=== PATIENT | male | born 1955 | race African-American/Black ===

== ENCOUNTER 2018-12-10 13:59 | Inpatient (IN) | payer OTHER ==
[2018-12-10 14:47] VITALS: BMI 25.0
--- NOTE | 2018-12-10 15:21 | HP ---
CIWA Score Nausea/Vomitin Muscle Tremors: 2 Anxiety: 2 Agitation: 2 Paroxysmal Sweats: 1-Minimal Palms Moist Orientation: 0-Oriented Tacttile Disturbances: 1-Very Mild Itch/Numbness Auditory Disturbances: 1-Very Mild Visual Disturbances: 0-None Headache: 2-Mild CIWA-Ar Total Score: 13 - Admission Criteria OASAS Guidelines: Admission for Medically Managed Detox: Requires at least one of the followin. CIWA greater than 12 2. Seizures within the past 24 hours 3. Delirium tremens within the past 24 hours 4. Hallucinations within the past 24 hours 5. Acute intervention needed for co occurring medical disorder 6. Acute intervention needed for co occurring psychiatric disorder 7. Severe withdrawal that cannot be handled at a lower level of care (continued vomiting, continued diarrhea, abnormal vital signs) requiring intravenous medication and/or fluids 8. Patient presents the following: CIWA greater than 12 Admission Criteria Met: Admission criteria met Admission ROS BHS - HPI Chief Complaint: i need help to stop drinking alcohol,cocaine Allergies/Adverse Reactions: Allergies Allergy/AdvReac Type Severity Reaction Status Date / Time No Known Allergies Allergy Verified 09/19/16 10:56 History of Present Illness: this 63 years old male with alcohol and cocaine dependence,seeking detox, withdrawal symptom,last detox teresa in 11/10 hepatitis c type 2 dm, syncope longest period of sobriety 6 months multiple admissions but keep relapsing Exam Limitations: No Limitations - Ebola screening Have you been sick,other than usual withdrawal symptoms: No - Review of Systems Constitutional: Loss of Appetite, Malaise, Night Sweats, Changes in sleep, Weakness EENT: reports: Nose Congestion Respiratory: reports: No Symptoms reported Cardiac: reports: Irregular Heart Rate GI: reports: Nausea, Poor Appetite, Abdominal cramping : reports: No Symptoms Reported Musculoskeletal: reports: Back Pain, Muscle Pain Integumentary: reports: Dryness Neuro: reports: Headache, Tremors Endocrine: reports: No Symptoms Reported Hematology: reports: No Symptoms Reported Psychiatric: reports: No Sypmtoms Reported, Judgement Intact, Mood/Affect Appropiate, Orientated x3 Patient History - Patient Medical History Hx Anemia: No Hx Asthma: No Hx Chronic Obstructive Pulmonary Disease (COPD): No Hx Cancer: No Hx Cardiac Disorders: No Hx Congestive Heart Failure: No Hx Hypertension: Yes (non compliance) Hx Hypercholesterolemia: Yes (non compliance) Hx Pacemaker: No HX Cerebrovascular Accident: No Hx Seizures: No Hx Dementia: No Hx Diabetes: Yes (type 2 dm,metformin 500 mgs bid non compliance) Hx Gastrointestinal Disorders: No Hx Liver Disease: No Hx Genitourinary Disorders: No Hx Sexually Transmitted Disorders: No Hx Renal Disease (ESRD): No Hx Thyroid Disease: No Hx Human Immunodeficiency Virus (HIV): No ( Last Tested: 2014: NEGATIVE.) Hx Hepatitis C: Yes (Started Treatment in past, did not complete.) Hx Depression: Yes Hx Suicide Attempt: No (PATIENT DENIES CURRENT SUICIDAL / HOMICIDAL IDEATION.) Hx Bipolar Disorder: No Hx Schizophrenia: No Other Medical History: no suicidal,no homicidal - Patient Surgical History Past Surgical History: Yes Hx Neurologic Surgery: No Hx Cataract Extraction: No Hx Cardiac Surgery: No Hx Lung Surgery: No Hx Breast Surgery: No Hx Breast Biopsy: No Hx Abdominal Surgery: No Hx Appendectomy: No Hx Cholecystectomy: No Hx Genitourinary Surgery: No Hx Section: No Hx Orthopedic Surgery: Yes (fx, right ankle in 2004) Anesthesia Reaction: No - PPD History Previous Implant?: Yes Documented Results: Positive w/o proof Implanted On Prior R Admission?: No PPD to be Administered?: No - Smoking Cessation Smoking history: Former smoker Have you smoked in the past 12 months: Yes Aproximately how many cigarettes per day: 10 Cigars Per Day: 0 Hx Chewing Tobacco Use: No Initiated information on smoking cessation: Yes 'Breaking Loose' booklet given: 12/10/18 - Substance & Tx. History Hx Alcohol Use: Yes Hx Substance Use: Yes Substance Use Type: Alcohol, Cocaine Hx Substance Use Treatment: Yes (teresa 11/10) - Substances Abused Alcohol Route: Oral Frequency: Daily Amount used: 2 pints of rum and vodka Age of first use: 8 Date of Last Use: 12/09/18 Cocaine Route: Smoking Frequency: Daily Amount used: 80$ Age of first use: 30 Date of Last Use: 12/09/18 Family Disease History - Family Disease History Family Disease History: Diabetes: Grandparent, Heart Disease: Grandparent, Brother Admission Physical Exam BHS - Vital Signs Vital Signs: Vital Signs - 24 hr 12/10/18 14:44 Temperature 98.2 F Pulse Rate 75 Respiratory 20 Rate Blood Pressure 158/89 - Physical General Appearance: Yes: Moderate Distress, Tremorous, Irritable, Sweating, Anxious HEENTM: Yes: Normal ENT Inspection, Normocephalic, SADIA, Pharynx Normal Respiratory: Yes: Lungs Clear, Normal Breath Sounds, No Respiratory Distress ( coughing with yellowish mucous) Neck: Yes: Within Normal Limits, Supple, Trachea in good position Breast: Yes: Within Normal Limits Cardiology: Yes: Regular Rhythm, Regular Rate, S1, S2, Edema Abdominal: Yes: Normal Bowel Sounds, Non Tender, Soft Genitourinary: Yes: Within Normal Limits Back: Yes: Muscle Spasm Musculoskeletal: Yes: Back pain, Muscle Pain Extremities: Yes: Within Normal Limits, Normal Range of Motion, Tremors Neurological: Yes: applications programmer II-XII NML intact, Fully Oriented, Alert, Motor Strength 5/5 Integumentary: Yes: Dry Lymphatic: Yes: Within Normal Limits - Diagnostic (1) Alcohol dependence with uncomplicated withdrawal Current Visit: No Status: Chronic (2) CAD (coronary artery disease) Current Visit: No Status: Chronic Qualifiers: Coronary Disease-Associated Artery/Lesion type: unspecified vessel or lesion type [place] vs. transplanted heart: [place] heart Associated angina: with unstable angina Qualified Code(s): I25.110 - Atherosclerotic heart disease of [place] coronary artery with unstable angina pectoris (3) Hypertension Current Visit: No Status: Chronic Qualifiers: Hypertension type: essential hypertension Qualified Code(s): I10 - Essential (primary) hypertension (4) Hypercholesteremia Current Visit: Yes Status: Acute (5) Cocaine dependence Current Visit: Yes Status: Acute Cleared for Admission [facility] - Detox or Rehab [facility] Level of Care: Medically Managed Detox Regimen/Protocol: Librium [facility] Breath Alcohol Content Breath Alcohol Content: 0 Urine Drug Screen - Results Drug Screen Negative: No Urine Drug Screen Results: [facility]-Cocaine, BZO-Benzodiazepines Inpatient Rehab Admission - Rehab Decision to Admit Inpatient rehab admission?: No
[2018-12-10] MEDS ORDERED: hydrOXYzine PAMOATE 50 MG CAPSULE (FP) PO PRN (15:54)
[2018-12-10] MEDS ORDERED: ACETAMINOPHEN 325 MG TABLET (FP) PO PRN (15:54)
[2018-12-10] MEDS ORDERED: MAG HYDROX/AL HYDROX/SIMETH 30 ML UNIT-DOSE CUP PO PRN (15:54)
[2018-12-10] MEDS ORDERED: MAGNESIUM HYDROX 2400MG/30ML ORAL SUSPENSION 30 ML CUP PO PRN (15:54)
[2018-12-10] MEDS ORDERED: LOPERAMIDE HCL 2 MG CAPSULE PO PRN (15:54)
[2018-12-10] MEDS ORDERED: MENTHOL/PHENOL 1 EACH UD MM PRN (15:54)
[2018-12-10] MEDS ORDERED: IBUPROFEN 400 MG TABLET (FP) PO PRN (15:54)
[2018-12-10] MEDS ORDERED: chlordiazePOXIDE HCL 25 MG CAPSULE PO PRN (15:54)
[2018-12-10] MEDS ORDERED: P-EPHED 60MG/TRIPROLIDI 2.5MG TABLET PO PRN (15:54)
[2018-12-10] MEDS ORDERED: MAGNESIUM CITRATE 300 ML BOTTLE PO PRN (15:54)
[2018-12-10] MEDS ORDERED: guaiFENesin/D-METHORPHAN HB 10 ML UNIT-DOSE CUPS PO PRN (15:54)
[2018-12-10] MEDS ORDERED: NITROGLYCERIN SUBLINGUAL 1/150 0.4 MG TAB SL PRN (15:59)
[2018-12-10] MEDS: chlordiazePOXIDE HCL 25 MG CAPSULE PO SCH ×2 (19:42→22:41)
[2018-12-10] MEDS: metFORMIN HCL 500 MG TABLET (FP) PO SCH (19:42)
[2018-12-10] MEDS ORDERED: MELATONIN 5 MG TABLETS PO PRN (22:00)
[2018-12-10] MEDS: INSULIN (LEVEMIR) 100 UNITS/ML UNITS SQ SCH (22:40)
[2018-12-10] MEDS: THIAMINE HCL 100 MG TABLET (FP) PO SCH (22:41)
[2018-12-11] MEDS: chlordiazePOXIDE HCL 25 MG CAPSULE PO SCH ×4 (05:19→22:34)
[2018-12-11] MEDS: metFORMIN HCL 500 MG TABLET (FP) PO SCH ×2 (07:25→16:50)
[2018-12-11] MEDS: PRENATAL VITAMINS W/ FOLIC ACID TABLET (FP) PO SCH (09:05)
[2018-12-11] MEDS: CLOPIDOGREL BISULFATE 75 MG TABLET (FP) PO SCH (09:05)
--- NOTE | 2018-12-11 10:45 | PN ---
S CIWA - CIWA Score Nausea/Vomitin-Mild Nausea/No Vomiting Muscle Tremors: 4-Moderate,w/Arms Extend Anxiety: 3 Agitation: 3 Paroxysmal Sweats: 1-Minimal Palms Moist Orientation: 1-Uncertain about Date Tacttile Disturbances: 0-None Auditory Disturbances: 0-None Visual Disturbances: 0-None Headache: 0-None Present CIWA-Ar Total Score: 13 BHS Progress Note (SOAP) Subjective: reported no taking antihypertensant x 1 + weeks, tremor sweating anxiety restlessness Objective: 12/11/18 10:44 Vital Signs Temperature 98.1 F 12/11/18 09:12 Pulse Rate 72 12/11/18 09:12 Respiratory Rate 18 12/11/18 09:12 Blood Pressure 183/91 H 12/11/18 09:12 O2 Sat by Pulse Oximetry (%) Laboratory Last Values POC Glucometer 128 UNITS (80-120) 12/11/18 05:19 begin home med antihypertensant lab pending Assessment: 12/11/18 10:45 alcohol withdrawal sx 12/11/18 10:45 hypertension diabetes Plan: continue detox discuss medication adherence
[2018-12-11] MEDS ORDERED: cloNIDine HCL 0.1 MG TABLET PO PRN (10:46)
[2018-12-11 11:28] LABS: ALBUMIN 2.7 g/dl (3.4-5.0); ALK PHOS 107 U/L (45-117); ANION GAP 5 MMOL/L (8-16); BILIRUBIN,TOTAL 0.3 mg/dL (0.2-1); BLOOD UREA NITROGEN 19 mg/dL (7-18); CALCIUM 9.4 mg/dL (8.5-10.1); CHLORIDE 106 mmol/L (98-107); CO2 30 mmol/L (21-32); GLUCOSE,RANDOM 147 mg/dL (74-106); POTASSIUM 3.9 mmol/L (3.5-5.1); SGOT/AST 20 U/L (15-37); SGPT/ALT 27 U/L (13-61); SODIUM 141 mmol/L (136-145); TOT PROT 5.8 g/dl (6.4-8.2)
[2018-12-11 11:48] LABS: HEMATOCRIT 37.1 % (35.4-49); HEMOGLOBIN 12.9 GM/dL (11.7-16.9); MCH 32.7 pg (25.7-33.7); MCHC 34.6 g/dl (32.0-35.9); MEAN CELL VOLUME 94.5 fl (80-96); MEAN PLT VOLUME 8.8 fl (7.5-11.1); PLATELET COUNT 276 K/MM3 (134-434); RBC 3.93 M/mm3 (4.00-5.60); RDW 13.6 % (11.9-15.9); WHITE BLOOD COUNT 3.9 K/mm3 (4.0-10.0)
[2018-12-11] MEDS: INSULIN (LEVEMIR) 100 UNITS/ML UNITS SQ SCH (22:33)
[2018-12-11] MEDS: THIAMINE HCL 100 MG TABLET (FP) PO SCH (22:57)
[2018-12-12] MEDS: metFORMIN HCL 500 MG TABLET (FP) PO SCH ×2 (06:41→17:37)
[2018-12-12] MEDS: chlordiazePOXIDE HCL 25 MG CAPSULE PO SCH ×2 (06:43→10:12)
[2018-12-12] MEDS: PRENATAL VITAMINS W/ FOLIC ACID TABLET (FP) PO SCH (10:12)
[2018-12-12] MEDS: CLOPIDOGREL BISULFATE 75 MG TABLET (FP) PO SCH (10:12)
--- NOTE | 2018-12-12 15:05 | PN ---
S CIWA - CIWA Score Nausea/Vomitin-Mild Nausea/No Vomiting Muscle Tremors: 1-None Visible, but [place] Anxiety: 1-Mildly Anxious Agitation: 1-Slight > Activity Paroxysmal Sweats: No Perspiration Orientation: 0-Oriented Tacttile Disturbances: 0-None Auditory Disturbances: 0-None Visual Disturbances: 0-None Headache: 0-None Present CIWA-Ar Total Score: 4 BHS Progress Note (SOAP) Subjective: pt states doing fine with alcohol detox protocol, wants to go to rehab after completing detox protocol O Vital Signs - 24 hr 12/11/18 12/11/18 12/12/18 17:49 22:07 00:30 Temperature 99 F 97.6 F Pulse Rate 74 70 Respiratory 18 18 18 Rate Blood Pressure 156/82 178/83 H 12/12/18 12/12/18 12/12/18 03:30 06:26 06:30 Temperature 97.4 F L Pulse Rate 60 Respiratory 18 18 18 Rate Blood Pressure 153/83 12/12/18 12/12/18 09:48 13:41 Temperature 98.1 F 98.6 F Pulse Rate 64 78 Respiratory 18 18 Rate Blood Pressure 136/70 140/70 Laboratory Tests 12/10/18 12/10/18 12/11/18 19:01 21:17 05:19 WBC RBC Hgb Hct MCV MCH MCHC RDW Plt Count MPV Sodium Potassium Chloride Carbon Dioxide Anion Gap BUN Creatinine Creat Clearance w eGFR POC Glucometer 240 262 128 Random Glucose Calcium Total Bilirubin AST ALT Alkaline Phosphatase Total Protein Albumin RPR Titer 12/11/18 12/11/18 12/11/18 08:00 08:00 08:00 WBC 3.9 L RBC 3.93 L Hgb 12.9 Hct 37.1 MCV 94.5 MCH 32.7 MCHC 34.6 RDW 13.6 Plt Count 276 MPV 8.8 Sodium 141 Potassium 3.9 Chloride 106 Carbon Dioxide 30 Anion Gap 5 L BUN 19 H Creatinine 1.0 Creat Clearance w eGFR > 60 POC Glucometer Random Glucose 147 H Calcium 9.4 Total Bilirubin 0.3 AST 20 ALT 27 Alkaline Phosphatase 107 Total Protein 5.8 L Albumin 2.7 L RPR Titer Nonreactive 12/11/18 12/11/18 12/11/18 11:11 16:29 21:17 WBC RBC Hgb Hct MCV MCH MCHC RDW Plt Count MPV Sodium Potassium Chloride Carbon Dioxide Anion Gap BUN Creatinine Creat Clearance w eGFR POC Glucometer 119 197 258 Random Glucose Calcium Total Bilirubin AST ALT Alkaline Phosphatase Total Protein Albumin RPR Titer 12/12/18 06:08 WBC RBC Hgb Hct MCV MCH MCHC RDW Plt Count MPV Sodium Potassium Chloride Carbon Dioxide Anion Gap BUN Creatinine Creat Clearance w eGFR POC Glucometer 122 Random Glucose Calcium Total Bilirubin AST ALT Alkaline Phosphatase Total Protein Albumin RPR Titer a/p: continue alcohol detox protocol elevated bgm- monitor-
[2018-12-12] MEDS: chlordiazePOXIDE 5 MG CAPSULE PO SCH (17:37)
[2018-12-12] MEDS: INSULIN (LEVEMIR) 100 UNITS/ML UNITS SQ SCH (22:22)
[2018-12-12] MEDS: THIAMINE HCL 100 MG TABLET (FP) PO SCH (22:22)
[2018-12-13] MEDS: chlordiazePOXIDE 5 MG CAPSULE PO SCH ×3 (00:20→10:35)
[2018-12-13] MEDS: metFORMIN HCL 500 MG TABLET (FP) PO SCH ×2 (07:26→17:59)
[2018-12-13] MEDS: PRENATAL VITAMINS W/ FOLIC ACID TABLET (FP) PO SCH (10:34)
[2018-12-13] MEDS: CLOPIDOGREL BISULFATE 75 MG TABLET (FP) PO SCH (10:35)
--- NOTE | 2018-12-13 10:48 | PN ---
S CIWA - CIWA Score Nausea/Vomitin-No Nausea/No Vomiting Muscle Tremors: 1-None Visible, but [place] Anxiety: 1-Mildly Anxious Agitation: 0-Normal Activity Paroxysmal Sweats: No Perspiration Orientation: 0-Oriented Tacttile Disturbances: 0-None Auditory Disturbances: 0-None Visual Disturbances: 0-None Headache: 0-None Present CIWA-Ar Total Score: 2 BHS Progress Note (SOAP) Subjective: feeling better less tremor mild sweating sleep better at night Objective: 12/13/18 10:52 Vital Signs Temperature 98.2 F 12/13/18 09:26 Pulse Rate 62 12/13/18 09:26 Respiratory Rate 18 12/13/18 09:26 Blood Pressure 154/74 12/13/18 09:26 O2 Sat by Pulse Oximetry (%) Laboratory Last Values WBC 3.9 K/mm3 (4.0-10.0) L 12/11/18 08:00 RBC 3.93 M/mm3 (4.00-5.60) L 12/11/18 08:00 Hgb 12.9 GM/dL (11.7-16.9) 12/11/18 08:00 Hct 37.1 % (35.4-49) 12/11/18 08:00 MCV 94.5 fl (80-96) 12/11/18 08:00 MCH 32.7 pg (25.7-33.7) 12/11/18 08:00 MCHC 34.6 g/dl (32.0-35.9) 12/11/18 08:00 RDW 13.6 % (11.9-15.9) 12/11/18 08:00 Plt Count 276 K/MM3 (134-434) 12/11/18 08:00 MPV 8.8 fl (7.5-11.1) 12/11/18 08:00 Sodium 141 mmol/L (136-145) 12/11/18 08:00 Potassium 3.9 mmol/L (3.5-5.1) 12/11/18 08:00 Chloride 106 mmol/L (98-107) 12/11/18 08:00 Carbon Dioxide 30 mmol/L (21-32) 12/11/18 08:00 Anion Gap 5 MMOL/L (8-16) L 12/11/18 08:00 BUN 19 mg/dL (7-18) H 12/11/18 08:00 Creatinine 1.0 mg/dL (0.55-1.3) 12/11/18 08:00 Creat Clearance w eGFR > 60 (>60) 12/11/18 08:00 POC Glucometer 217 UNITS (80-120) 12/13/18 07:15 Random Glucose 147 mg/dL (74-106) H 12/11/18 08:00 Calcium 9.4 mg/dL (8.5-10.1) 12/11/18 08:00 Total Bilirubin 0.3 mg/dL (0.2-1) 12/11/18 08:00 AST 20 U/L (15-37) 12/11/18 08:00 ALT 27 U/L (13-61) 12/11/18 08:00 Alkaline Phosphatase 107 U/L (45-117) 12/11/18 08:00 Total Protein 5.8 g/dl (6.4-8.2) L 12/11/18 08:00 Albumin 2.7 g/dl (3.4-5.0) L 12/11/18 08:00 RPR Titer Nonreactive (NONREACTIVE) 12/11/18 08:00 lab noted 12/13/18 10:53 patient admit non adherence with antihypertensant x "a while" nifedipin along with clonidin prn to manage systolic below 140 Assessment: 12/13/18 10:54 withdrawal sx Plan: continue detox
[2018-12-13] MEDS: chlordiazePOXIDE HCL 10 MG CAPSULE PO SCH ×2 (17:59→23:09)
[2018-12-13] MEDS: INSULIN (LEVEMIR) 100 UNITS/ML UNITS SQ SCH (23:10)
[2018-12-13] MEDS: THIAMINE HCL 100 MG TABLET (FP) PO SCH (23:10)
[2018-12-14 06:11] VITALS: BP 143/76; PULSE 60; TEMP 97.2
[2018-12-14] MEDS: metFORMIN HCL 500 MG TABLET (FP) PO SCH (07:04)
[2018-12-14] MEDS: chlordiazePOXIDE HCL 10 MG CAPSULE PO SCH (07:05)
--- NOTE | 2018-12-14 09:11 | DS ---
[facility] Detox Discharge Summary Admission Date: 12/10/18 Discharge Date: 12/14/18 - History Present History: Alcohol Dependence, Cocaine Dependence - Physical Exam Results Vital Signs: Vital Signs Temperature 97.2 F L 12/14/18 06:11 Pulse Rate 60 12/14/18 06:11 Respiratory Rate 18 12/14/18 06:11 Blood Pressure 143/76 12/14/18 06:11 O2 Sat by Pulse Oximetry (%) - Treatment Hospital Course: Detox Protocol Followed, Detoxed Safely, Responded well, Discharged Condition Good - Medication Discharge Medications: Ambulatory Orders Aspirin [ASA -] 81 mg PO DAILY #30 tab.chew 09/20/16 Diltiazem Cd [Cardizem Cd -] 120 mg PO DAILY #30 cap.cd.24h 09/22/16 Insulin Glargine,Hum.rec.anlog [Lantus Solostar PEN -] 30 units SQ HS #1 ins 11/07 Clopidogrel Bisulfate [Plavix -] 75 mg PO DAILY #14 tablet 12/13/18 Diltiazem Cd [Cardizem Cd -] 120 mg PO DAILY #14 cap.cd.24h 12/13/18 Nitroglycerin Sublingual [Nitrostat -] 0.4 mg SL Q5M PRN #7 tab 12/13/18 metFORMIN HCL [Glucophage -] 500 mg PO BID #30 tablet 12/13/18 - Diagnosis (1) Cocaine dependence Current Visit: Yes Status: Chronic Qualifiers: Substance use status: uncomplicated Qualified Code(s): F14.20 - Cocaine dependence, uncomplicated (2) Hypercholesteremia Current Visit: Yes Status: Chronic (3) Alcohol dependence with uncomplicated withdrawal Current Visit: No Status: Chronic (4) CAD (coronary artery disease) Current Visit: No Status: Chronic Qualifiers: Coronary Disease-Associated Artery/Lesion type: unspecified vessel or lesion type [place] vs. transplanted heart: [place] heart Associated angina: with unstable angina Qualified Code(s): I25.110 - Atherosclerotic heart disease of [place] coronary artery with unstable angina pectoris (5) Hypertension Current Visit: Yes Status: Chronic Qualifiers: Hypertension type: essential hypertension Qualified Code(s): I10 - Essential (primary) hypertension - AMA Did Patient Leave Against Medical Advice: No
== END 2018-12-14 09:14 | disposition home or self-care (01) | DRG 774 ==
LOC: YASAS 13:59 → Y3N 18:02
PROVIDERS: ADMIT Surgery; ATTEND Surgery
PROC: HZ2ZZZZ Detoxification Services for Substance Abuse Treatment (ICD-10-PCS; principal; 2018-12-10)
DX: F10.230 Alcohol dependence with withdrawal, uncomplicated (principal); F14.20 Cocaine dependence, uncomplicated; I25.10 Atherosclerotic heart disease of native coronary artery without angina pectoris; I10 Essential (primary) hypertension; E78.00 Pure hypercholesterolemia, unspecified; E11.9 Type 2 diabetes mellitus without complications; Z79.84 Long term (current) use of oral hypoglycemic drugs; Z91.14 Patient's other noncompliance with medication regimen
CPT/HCPCS: 36415; 80053; 82962; 85027; 86593

== ENCOUNTER 2020-07-20 10:00 | Inpatient (IN) | payer OTHER ==
--- NOTE | 2020-07-20 10:06 | BHS.RME ---
Substance Use & Tx History - Substance Use History Alcohol Substance amount: 3 pints vodka Frequency of use: Daily Substance route: Oral Date of Last Use: 07/19/20 (started at age 12) Cocaine-Crack Substance amount: $150-200 Frequency of use: Daily Substance route: Smoking Date of Last Use: 07/19/20 (started age 37) Marijuana/Hashish Substance amount: $30 Frequency of use: Less than 3 times per week Substance route: Smoking Date of Last Use: 07/18/20 (staerted age 13) Physical/Psych/Mental Status - Behavior General Behavior: Increased activity (restlessness, agitation) Eye Contact: Normal - Cooperativeness Cooperativeness: Cooperative - Thinking Thought Processes: Tight, Logical, Goal Directed - Physical Health Problems Is patient presently having any pain?: No Does patient presently have any injuries (include location): No Does patient currently have a fever: No Is patient : No CIWA Nausea/Vomitin-Int. Nausea w/Dry Heave Muscle Tremors: 3 Anxiety: 3 Agitation: 3 Paroxysmal Sweats: 4-Forehead w/Sweat Beads Orientation: 1-Uncertain about Date Tacttile Disturbances: 0-None Auditory Disturbances: 0-None Visual Disturbances: 1-Very Mild Sensitivity Headache: 1-Very Mild CIWA-Ar Total Score: 20
--- NOTE | 2020-07-20 11:16 | HP ---
CIWA Score Nausea/Vomitin-Int. Nausea w/Dry Heave Muscle Tremors: 3 Anxiety: 3 Agitation: 3 Paroxysmal Sweats: 4-Forehead w/Sweat Beads Orientation: 1-Uncertain about Date Tacttile Disturbances: 0-None Auditory Disturbances: 0-None Visual Disturbances: 1-Very Mild Sensitivity Headache: 1-Very Mild CIWA-Ar Total Score: 20 - Admission Criteria OASAS Guidelines: Admission for Medically Managed Detox: Requires at least one of the followin. CIWA greater than 12 2. Seizures within the past 24 hours 3. Delirium tremens within the past 24 hours 4. Hallucinations within the past 24 hours 5. Acute intervention needed for co occurring medical disorder 6. Acute intervention needed for co occurring psychiatric disorder 7. Severe withdrawal that cannot be handled at a lower level of care (continued vomiting, continued diarrhea, abnormal vital signs) requiring intravenous medication and/or fluids 8. Admitting History and Physical - Admission Chief Complaint: Mr. Fisher is a 64 yo man who presents to [facility] stating he is here "to clean my life up, get my act together". He is requesting detox admission. History of Present Illness: Mr. Fisher is a 64 yo man who presents to [facility] stating he is here "to clean my life up, get my act together". He is requesting detox admission. He was last here for admission between Dec 10 and 2018. He was screened but not admitted in March of this year. PMH: HTN, HLD, DM, HCV treated but not completed PSH; irght ankel fracture 2004 Psych: depression on no meds SOC: homeless on the streets Legal: none - Substance Use History Alcohol Substance amount: 3 pints vodka Frequency of use: Daily Substance route: Oral Date of Last Use: 07/19/20 (started at age 12) Cocaine-Crack Substance amount: $150-200 Frequency of use: Daily Substance route: Smoking Date of Last Use: 07/19/20 (started age 37) Marijuana/Hashish Substance amount: $30 Frequency of use: Less than 3 times per week Substance route: Smoking Date of Last Use: 07/18/20 (staerted age 13) History Source: Patient Limitations to Obtaining History: No Limitations - Past Medical History Cardiovascular: Yes: CAD, [place] - Smoking History Smoking history: Former smoker Have you smoked in the past 12 months: Yes Aproximately how many cigarettes per day: 10 - Alcohol/Substance Use Hx Alcohol Use: Yes Admission ROS S - HPI Allergies/Adverse Reactions: Allergies Allergy/AdvReac Type Severity Reaction Status Date / Time No Known Allergies Allergy Verified 12/10/18 18:37 Exam Limitations: No Limitations - Ebola screening Have you traveled outside of the country in the last 21 days: No Have you been sick,other than usual withdrawal symptoms: No Do you have a fever: No - Review of Systems Constitutional: Unintentional Wgt. Loss (lost 10 lbs in the past month) EENT: reports: Blurred Vision (needs reading glasses) Respiratory: reports: No Symptoms reported Cardiac: reports: No Symptoms Reported GI: reports: No Symptoms Reported : reports: No Symptoms Reported Musculoskeletal: reports: Back Pain (chronic, mild) Integumentary: reports: No Symptoms Reported Neuro: reports: No Symptoms reported Endocrine: reports: Other (post prandial glucose 180 when checked at home) Hematology: reports: No Symptoms Reported Psychiatric: reports: Depressed (no SI) Patient History - Patient Medical History Hx Anemia: No Hx Asthma: No Hx Chronic Obstructive Pulmonary Disease (COPD): No Hx Cancer: No Hx Cardiac Disorders: No Hx Congestive Heart Failure: No Hx Hypertension: Yes (non compliance) Hx Hypercholesterolemia: Yes (non compliance) Hx Pacemaker: No HX Cerebrovascular Accident: No Hx Seizures: No Hx Dementia: No Hx Diabetes: Yes (type 2 dm,metformin 500 mgs bid non compliance) Hx Gastrointestinal Disorders: No Hx Liver Disease: No Hx Genitourinary Disorders: No Hx Sexually Transmitted Disorders: No Hx Renal Disease (ESRD): No Hx Thyroid Disease: No Hx Human Immunodeficiency Virus (HIV): No ( Last Tested: 2014: NEGATIVE.) Hx Hepatitis C: Yes (Started Treatment in past, did not complete.) Hx Depression: Yes Hx Suicide Attempt: No (PATIENT DENIES CURRENT SUICIDAL / HOMICIDAL IDEATION.) Hx Bipolar Disorder: No Hx Schizophrenia: No - Patient Surgical History Past Surgical History: Yes Hx Neurologic Surgery: No Hx Cataract Extraction: No Hx Cardiac Surgery: No Hx Lung Surgery: No Hx Breast Surgery: No Hx Breast Biopsy: No Hx Abdominal Surgery: No Hx Appendectomy: No Hx Cholecystectomy: No Hx Genitourinary Surgery: No Hx Section: No Hx Orthopedic Surgery: Yes (fx, right ankle in 2004) Anesthesia Reaction: No - Smoking Cessation Smoking history: Former smoker Have you smoked in the past 12 months: Yes Aproximately how many cigarettes per day: 20 Cigars Per Day: 0 Hx Chewing Tobacco Use: No Initiated information on smoking cessation: Yes 'Breaking Loose' booklet given: 07/20/20 Admission Physical Exam [facility] - Physical General Appearance: Yes: No Apparent Distress, Nourished HEENTM: Yes: EOMI, Hearing grossly Normal, Normocephalic, Normal Voice Respiratory: Yes: Lungs Clear, No Respiratory Distress, No Accessory Muscle Use Neck: Yes: Within Normal Limits, Supple Breast: Yes: Breast Exam Deferred Cardiology: Yes: Regular Rhythm, Regular Rate Abdominal: Yes: Normal Bowel Sounds, Non Tender, Soft, Protuberent Genitourinary: Yes: Other (deferred) Back: Yes: Normal Inspection, Other (small scar right lateral thoracic region, pt does not recall how this happened) Musculoskeletal: Yes: Other (slightly wide based, steady) Extremities: Yes: Normal Inspection, Non-Tender Neurological: Yes: Alert, Normal Response Integumentary: Yes: Normal Color, Dry, Warm - Diagnostic (1) Nicotine dependence Current Visit: Yes Status: Acute Qualifiers: Nicotine product type: cigarettes Substance use status: uncomplicated Qualified Code(s): F17.210 - Nicotine dependence, cigarettes, uncomplicated (2) Homeless Current Visit: Yes Status: Acute (3) Insulin dependent diabetes mellitus Current Visit: Yes Status: Chronic Comment: 1. glucose monitoring ACHS 2. fingestick now 3. reconcile meds (4) Hepatitis C Current Visit: No Status: Chronic (5) Alcohol dependence with uncomplicated withdrawal Current Visit: Yes Status: Acute Comment: 1. Admit to detox 2. Librium protocol 3. Routine labs 4. Comfort medication (6) Cocaine dependence Current Visit: Yes Status: Chronic Qualifiers: Substance use status: uncomplicated Qualified Code(s): F14.20 - Cocaine dependence, uncomplicated (7) Hypercholesteremia Current Visit: No Status: Chronic (8) Hypertension Current Visit: Yes Status: Chronic Qualifiers: Hypertension type: essential hypertension Qualified Code(s): I10 - Essential (primary) hypertension Cleared for Admission [facility] - Detox or Rehab [facility] Level of Care: Medically Managed Detox Regimen/Protocol: Librium Breathalyzer - Breathalyzer Breathalyzer: 0.007 Urine Drug Screen - Test Device Lot number: [id number] Expiration date: 01/28/22 - Control Is test valid?: Yes - Results Drug screen NEGATIVE: No Urine drug screen results: [facility]-Cocaine Inpatient Rehab Admission - Rehab Decision to Admit Inpatient rehab admission?: No
[2020-07-20] MEDS ORDERED: IBUPROFEN 400 MG TABLET (FP) PO PRN (11:26)
[2020-07-20] MEDS ORDERED: MENTHOL/PHENOL 1 EACH UD MM PRN (11:26)
[2020-07-20] MEDS ORDERED: METHOCARBAMOL 500 MG TABLET PO PRN (11:26)
[2020-07-20] MEDS ORDERED: BISMUTH SUBSALICYLATE 524 MG/30 ML UD PO PRN (11:26)
[2020-07-20] MEDS ORDERED: ONDANSETRON *ODT* 4 MG TABLET SL PRN (11:26)
[2020-07-20] MEDS ORDERED: MAGNESIUM HYDROX 2400MG/30ML ORAL SUSPENSION 30 ML CUP PO PRN (11:26)
[2020-07-20] MEDS ORDERED: NICOTINE POLACRILEX 2 MG GUM BUC PRN (11:26)
[2020-07-20] MEDS ORDERED: chlordiazePOXIDE HCL 25 MG CAPSULE PO PRN (11:26)
[2020-07-20] MEDS ORDERED: MAG HYDROX/AL HYDROX/SIMETH 30 ML UNIT-DOSE CUP PO PRN (11:26)
[2020-07-20] MEDS ORDERED: MAGNESIUM CITRATE 300 ML BOTTLE PO PRN (11:26)
[2020-07-20] MEDS ORDERED: ACETAMINOPHEN 325 MG TABLET (FP) PO PRN ×2 (11:26)
[2020-07-20] MEDS ORDERED: INSULIN (NOVOLOG) ASPART 100 UNITS/ML 10ML VIAL ONE (11:35)
[2020-07-20] MEDS ORDERED: Insulin (LOG) Aspart 100 UNITS/ML VIAL SQ ONE (11:45)
--- OUTSIDE RECORDS SUMMARY | 2020-07-20 11:57 | XMS ---
:1955 [facility] Providers Name Role Phone PALAO, C MD Unavailable Unavailable PALAO, C MD Unavailable Unavailable PALAO, C MD Unavailable Unavailable PALAO, C MD Unavailable Unavailable PALAO, C MD Unavailable Unavailable PALAO, C MD Unavailable Unavailable PALAO, C MD Unavailable Unavailable PALAO, C MD Unavailable Unavailable PALAO, C MD Unavailable Unavailable PALAO, C MD Unavailable Unavailable PALAO, C MD Unavailable Unavailable PALAO, C MD Unavailable Unavailable PALAO, C MD Unavailable Unavailable PALAO, C MD Unavailable Unavailable Allgaier, ONBOARDING SPECIALIST Unavailable Unavailable Allgaier, ONBOARDING SPECIALIST Unavailable Unavailable Allgaier, ONBOARDING SPECIALIST Unavailable Unavailable Allgaier, ONBOARDING SPECIALIST Unavailable Unavailable Allgaier, ONBOARDING SPECIALIST Unavailable Unavailable Allgaier, ONBOARDING SPECIALIST Unavailable Unavailable Allgaier, ONBOARDING SPECIALIST Unavailable Unavailable Allgaier, ONBOARDING SPECIALIST Unavailable Unavailable Allgaier, ONBOARDING SPECIALIST Unavailable Unavailable Allgaier, ONBOARDING SPECIALIST Unavailable Unavailable Allgaier, ONBOARDING SPECIALIST Unavailable Unavailable Allgaier, ONBOARDING SPECIALIST Unavailable Unavailable Allgaier, ONBOARDING SPECIALIST Unavailable Unavailable Allgaier, ONBOARDING SPECIALIST Unavailable Unavailable Allgaier, ONBOARDING SPECIALIST Unavailable Unavailable Allgaier, ONBOARDING SPECIALIST Unavailable Unavailable Allgaier, ONBOARDING SPECIALIST Unavailable Unavailable Allgaier, ONBOARDING SPECIALIST Unavailable Unavailable BAPANA, V MD Unavailable Unavailable BAPANA, V MD Unavailable Unavailable BAPANA, V MD Unavailable Unavailable BAPANA, V MD Unavailable Unavailable BAPANA, V MD Unavailable Unavailable BAPANA, V MD Unavailable Unavailable BAPANA, V MD Unavailable Unavailable BAPANA, V MD Unavailable Unavailable BAPANA, V MD Unavailable Unavailable BAPANA, V MD Unavailable Unavailable BAPANA, V MD Unavailable Unavailable BAPANA, V MD Unavailable Unavailable BAPANA, V MD Unavailable Unavailable BAPANA, V MD Unavailable Unavailable BAPANA, V MD Unavailable Unavailable Amisano, Amisano Unavailable Unavailable Amisano, Amisano Unavailable Unavailable Re-disclosure Warning The records that you are about to access may contain information from federally- assisted alcohol or drug abuse programs. If such information is present, then the following federally mandated warning applies: This information has been disclosed to you from records protected by federal confidentiality rules (42 CFR part 2). The federal rules prohibit you from making any further disclosure of this information unless further disclosure is expressly permitted by the written consent of the person to whom it pertains or as otherwise permitted by 42 CFR part 2. A general authorization for the release of medical or other information is NOT sufficient for this purpose. The Federal rules restrict any use of the information to criminally investigate or prosecute any alcohol or drug abuse patient.The records that you are about to access may contain highly sensitive health information, the redisclosure of which is protected by Article 27-F of the [facility] Public Health law. If you continue you may haveaccess to information: Regarding HIV / AIDS; Provided by facilities licensed or operated by the [facility] Office of Mental Health; or Provided by the [facility] Office for People With Developmental Disabilities. If such information is present, then the following [facility] mandated warning applies: This information has been disclosed to you from confidential records which are protected by state law. State law prohibits you from making any further disclosure of this information without the specific written consent of the person to whom it pertains, or as otherwise permitted by law. Any unauthorized further disclosure in violation of state law may result in a fine or intermediate sentence or both. A general authorization for the release of medical or other information is NOT sufficient authorization for further disclosure. Allergies and Adverse Reactions Type Description Substance Reaction Status Data Source(s ) Propensity to adverse NKDA NKDA MED [facility] ([facility]) reactions to drug Family History Family Member Family Member Family Member Date of Description Data Source(s) Name Gender Status Status Unknown Male Problem [facility] ([facility]) Encounters Encounter Providers Location Date Indications Data Source(s ) Preadmit Attender: Eleanor 07/25/2019 CHRONIC HEPATITIS C [facility] [place] 11:00:00 AM Center EDT CHRONIC HEPATITIS C OutpatientOffice Visit Attender: Eiv Office 03/15/2018 [facility] Dana Harvey 03:30:00 AM EDT Card iology) ONBOARDING SPECIALIST Emergency Attender: 02/14/2018 [facility] BRYCE WILLSON 01:23:00 PM EDT Gary purcell MD - 02/14/2018 04:20:00 PM EDT Emergency Attender: 02/14/2018 [facility] BRYCE WILLSON 01:23:00 PM EDT Gary purcell MD - 02/14/2018 04:20:00 PM ED[facility] 02:20:45 PM EST Outpatient Attender: 05/01/2013 [facility] RAMSEY CAPONE MD 10:17:00 AM EDT Outpatient Attender: 04/26/2013 [facility] RAMSEY CAPONE MD 01:44:00 PM EDT Outpatient Attender: 03/08/2013 [facility] RAMSEY CAPONE MD 12:19:00 PM EDT Outpatient Attender: 03/06/2013 [facility] RAMSEY CAPONE MD 01:52:00 PM EDT Medications Medication Brand Start Product Dose Route Administrative Pharmacy [facility] Indications Reaction Description Data Name Date Form Instructions Instructions Source(s) Amlodipine Amlodi Tablets ORAL complet Amlodi pine MEDENT 10 MG Oral pine ed Besylate ([facility] Tablet [facility] Amlodipine te ) Besylate atorvastati Atorva Tablets ORAL complet Atorv astatin MED[facility] n 10 MG statin ed Calcium ([facility] Oral Tablet Calciu Cardio logy Atorvastati m ) n Calcium Enalapril Enalap Tablets ORAL complet Enalapr il [facility] Maleate 20 ril ed Maleate ([facility] MG Oral Maleat Cardiology Tablet e ) Metformin Metfor Tablets ORAL complet Metform in MEDENT hydrochlori min ed HCL ([facility] de 500 MG HCL Cardiology Oral Tablet ) Metformin HCL Sertraline Sertra Tablets ORAL complet Sertra line MED[facility] 50 MG Oral line ed HCL ([facility] Tablet HCL Cardiology Sertraline ) HCL Enalapril Enalap Tablets ORAL complet Enalapr il MEDENT Maleate 10 ril ed Maleate ([facility] MG Oral Maleat Cardiology Tablet e ) Aspirin 81 Aspiri Chewtabs ORAL complet Aspir in MEDENT MG Chewable n ed Adult Low ([facility] Tablet Adult Strength Cardiolo gy Aspirin Low ) Adult Low Streng Strength th Tamsulosin Tamsul Capsules ORAL complet Tamsu losin [facility] hydrochlori osin ed HCL ([facility] de 0.4 MG HCL Cardiology Oral ) Capsule Tamsulosin HCL Insurance Providers Payer name Policy type / Policy ID Covered Covered alliance party's Policy Plan Coverage type alliance party ID relationship to Allison Information allison BEBLAIR [id number] SP [id number] [facility] [id number] SP [id number] E [facility] [id number] Self [id number] CORRECTIONS AND [id number] SELF [id number] COMMUNITY SUPE Nys Dept Commercial [id number] Self [id number] Correctional Ser KEANU DRUG [id number] SELF [id number] T[facility] CENTER CORRECTIONS B [id number] Self [id number] [facility] [id number] S [id number] CORRECTIONAL FAC [facility] [employer] [id number] S [id number] CORRECTIONAL FAC Problems, Conditions, and Diagnoses Code Display Name Description Problem Effective Data Type Dates Source(s) 580288953 Chronic hepatitis C Chronic hepatitis C Problem [facility] ([facility]) 98735915 Type 2 diabetes Type 2 diabetes Problem MEDE NT ([facility] mellitus mellitus [facility]iology) 210243525272111 History of cocaine History of cocaine Problem [facility] ([facility] abuse abuse [facility]iology) 6673361339551 History of tobacco History of tobacco Problem [facility] ([facility] use use Cardiology) 033773663 Pain in left arm Pain in left arm Problem ME DENT ([facility]) 36859558 Essential Essential Problem [facility] ([facility] hypertension hypertension [facility] ) 7093273 Old myocardial Old myocardial Problem [facility] ([facility] infarction infarction [facility]) 054033487 Electrocardiogram Electrocardiogram Problem [facility] ([facility] abnormal abnormal [facility]iology) F17.210 Nicotine NICOTINE Diagnosis 02/14/2018 [facility] dependence, DEPENDENCE, 01:23:00 Medical cigarettes, CIGARETTES, PM EDT Center uncomplicated UNCOMPLICATED I25.2 Old myocardial OLD MYOCARDIAL Diagnosis 02/14/2018 [facility] infarction INFARCTION 01:23:00 Medical PM EDT Center Z79.84 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 (CURRENT) Diagnosis 018 [facility] USE OF ORAL USE OF ORAL 01:23:00 Medical HYPOGLYCEMIC DRUGS HYPOGLYCEMIC DRUGS PM EDT Center Z79.4 manager long term care (current) CUSTODIAL (CURRENT) Diagnosis 018 [facility] use of insulin USE OF INSULIN 01:23:00 Medica l PM EDT Center E11.9 Type 2 diabetes TYPE 2 DIABETES Diagnosis 02/14/2018 [place] mellitus without MELLITUS WITHOUT 01:23:00 Me dical complications COMPLICATIONS PM EDT Center R00.1 Bradycardia, BRADYCARDIA, Diagnosis 02/14/2018 [facility] unspecified UNSPECIFIED 01:23:00 Medical PM EDT Center R94.31 Abnormal ABNORMAL Diagnosis 02/14/2018 [facility] electrocardiogram ELECTROCARDIOGRAM 01:23:00 Medical [ECG] [EKG] [ECG] [EKG] PM EDT Center I10 Essential (primary) ESSENTIAL (PRIMARY) Diagnosis 018 [facility] hypertension HYPERTENSION 01:23:00 Medical PM EDT Center 250.02 Type II or Type II or Diagnosis [facility] unspecified type unspecified type Un iversity diabetes mellitus diabetes mellitus Hospital without mention of without mention of complication, complication, uncontrolled uncontrolled 272.4 Other and Other and [facility] [place] [facility] Hospit al 401.9 Unspecified Unspecified Diagnosis [facility] essential [facility] Surgeries/Procedures Procedure Description Date Indications Data Source(s) ECG Complete 03/15/2018 12:00:00 AM PAULINO Garcia ([facility]) EDT Results ID Date Data Source [id number] 07/18/2020 12:30:00 PM EDT [facility] Name Value Range Interpretation Description Data Sup porting Code Source(s) Document(s ) SARS-CoV-2 [facility] (COVID-19) RNA panel - Unspecified specimen by NILDA with probe detection This lab was ordered by LIZ BEAL and reported by [facility]. ID Date Data Source [id number] 04/18/2020 12:00:00 AM EDT [facility] Name Value Range Interpretation Code Description Data Elsy rce(s) Supporting Document(s ) 2019-nCoV [facility] RNA XXX NILDA+probe- Imp This lab was [facility] by [facility] and rep orted by [employer]. ID Date Data Source [id number] 04/04/2020 08:57:00 AM EDT [facility] Name Value Range Interpretation Code Description Data Elsy rce(s) Supporting Document(s ) SARS-COV-2 [facility] PCR This lab was ordered by ER [employer] BETTY Herrmann and reported by [facility]. ID Date Data Source [id number] 03/27/2020 04:49:00 PM EDT [facility] Name Value Range Interpretation Code Description Data Elsy rce(s) Supporting Document(s ) SARS-COV-2 [facility] PCR This lab was ordered by LIZ RAY LT and reported by [facility]. ID Date Data Source [id number] 03/15/2018 11:23:00 AM EDT [facility] ([facility]) Name Value Range Interpretation Code Description Data Elsy rce(s) Supporting Document(s ) EKG <pending> Normal (applies to EKG [facility] ([facility] non-numeric results) Cardiolog y) ID Date Data Source [id number] 02/14/2018 04:18:00 PM EDT [facility] ED Provider Documentation Patient: ANAI NUNEZ [id number] /Age: 12 1955 62 Medical Record#: [id number] Service Date: 02/14/18 Location: EMERGENCY DEPARTMENT , Kailey Ruiz, scribed for Bryce Willson on 02/14/18 at 1621 . Hypertension - HPI Summary HPI Summary: This pt is a 62 y/o male presenting t o [facility] via EMS from [facility] for EKG changes and high blood pressure. Pt reports he gets his daily check up at around lunch time. Today he was no ticed to have elevated blood pressure and EKG changes. Pt was 190 systolic at the [facility] facility. Denies chest pain, headache, SOB, or any other complaints. PMHx includes MT, DM, HTN. Pt is currently on Lisinopril and another antihypertensi ve medication (unable to recall the name). He reports he has not taken his antihyperte nsive medication today. Pt states he had EKG and stress tests done at either [facility] or [facility]. He is a former cocaine user. - History of Current Complaint Chief Complaint: EDHypertension Stated Complaint: HIGH BP Time Seen by Provide r: 02/14/18 13:30 Hx Obtained From: Patient Onset/Duration: Started Hours Ago, Still Present Timing: Lasting Days Aggravating Factor(s): Nothing Alleviating Factor(s ): Nothing Associated Signs Symptoms: Negative - Allergies/Home Medications Home Medications: Home Medications Aspirin EC TAB* [Ecotrin EC Low Dose 81 MG*] 81 mg PO DAILY 02/14/18 [History Confirmed 02/14/18] Atorvastatin* [Lipi tor*] 10 mg PO BEDTIME 02/14/18 [History Confirmed 02/14/18] Enalapril TAB* [Vas otec TAB*] 10 mg PO DAILY 02/14/18 [History Confirmed 02/14/18] Insulin GLARGINE(*) [Lantus(*)] 33 units SUBCUT QPM 02/14/18 [History Confirmed 02/14/18] Sertraline * [Zoloft*] 25 mg PO QPM 02/14/18 [History Confirmed 02/14/18] Tamsulosin CAP* [Fl omax CAP*] 0.4 mg PO DAILY 02/14/18 [History Confirmed 02/14/18] amLODIPine TAB* [No rvasc 5 mg TAB*] 10 mg PO DAILY 02/14/18 [History Confirmed 02/14/18] metFORMIN* [Glucophage 500 MG TAB *] 500 mg PO BID 02/14/18 [History Confirmed 02/14/18] PMH/Surg Hx/FS Hx/Imm Hx Endocrine/Hematology History: Reports: H x Diabetes Cardiovascular History: Reports: Hx Hypertension, Hx Myocardial Infarctio n Infectious Disease History: No Infectious Disease History: Reports: Hx Hepatitis - B and C Denies: Traveled Outside the [place] in Last 30 Days - Family History Kno wn Family History: Negative: Blood Disorder - Social History Alcohol Us e: None Alcohol Amount: Stopped drinking Nov Substance Use Type: Reports: Cocaine S ubstance Use Comment - Amount Last Used: November Smoking Status (MU): Light Suellen ry Day Tobacco Smoker Review of Systems Negative: Fever, Chills Eyes: Negative ENT: Negative Cardiovascular: Other - hypertension Negative: Chest Pain Nega tive: Shortness Of Breath Negative: Abdominal Pain Genitourinary: Negative Musculoskeletal: Negative Skin: Negative Negative: Headache All Other Systems Re viewed And Are Negative: Yes Physical Exam - Summary Physical Exam Summary: Appearance: Well appearing, no pain distress Skin: warm, dry, reflects adequate perf usion Head/face: normal Eyes: EOMI, SADIA ENT: normal Neck: supple, nontender Re spiratory: CTA, breath sounds present Cardiovascular: RRR, pulses symmetrical Abdomen: nontender, soft Bowel: present Musculoskeletal: normal, strength/ROM in tact Neuro: normal, sensory motor intact, A Ox3 Triage Information Reviewed: Yes V ital Signs On Initial Exam: Initial Vitals Temp Pulse Resp BP Pulse Ox 98.7 F 55 16 167/85 97 02/14/18 13:39 02/14/18 13:39 02/14/18 13:39 0 02/14/18 13:39 02/14/18 13:39 Vital Signs Reviewed: Yes Diagnostics - Vital Signs Vital Signs Temp Pulse Resp BP Pulse Ox 02/14/18 14:20 22 191/104 02/14/18 14:00 16 02/14/18 13:49 16 173/82 02/14 13:39 98.7 F 55 16 167/85 97 - Laboratory Lab Results: Lab Resul ts 02/14/18 02/14/18 02/14/18 Range/Units 14:43 14:43 14:43 WBC 5.6 (3.5-10.8) 10 3/ul RBC 4.67 (4.0-5.4) 10 6/ul Hgb 14.3 ( 14.0-18.0) g/dl Hct 43 (42-52) % MCV 92 (80-94) fL MCH 31 ( 27-31) pg MCHC 33 (31-36) g/dl RDW 14 (10.5-15) % Plt Count 2 26 (150-450) 10 3/ul MPV 8.2 (7.4-10.4) um3 Neut % (Auto) 41.3 (38-83) % Lymph % (Auto) 46.3 (25-47) % Faulkner % (Auto) 10.4 H (0-7) % Eos % (Auto) 1.4 (0-6) % Baso % (Auto) 0.6 (0-2) % Abso lute Neuts (auto) 2.3 (1.5-7.7) 10 3/ul Absolute Lymphs (auto) 2.6 (1.0-4 .8) 10 3/ul Absolute Monos (auto) 0.6 (0-0.8) 10 3/ul Absolute Eos (auto ) 0.1 (0-0.6) 10 3/ul Absolute Basos (auto) 0 (0-0.2) 10 3/ul Absolu te Nucleated RBC 0 10 3/ul Nucleated RBC % 0.3 INR (Anticoag Therapy ) (0.77-1.02) APTT (26.0-36.3) seconds Sodium 138 L (139-145) mmol/L Potassium 3.7 (3.5-5.0) mmol/L Chloride 104 (101-111) m mol/L Carbon Dioxide 27 (22-32) mmol/L Anion Gap 7 (2-11) mmol/ L BUN 18 (6-24) mg/dL Creatinine 0.92 (0.67-1.17) mg/dL Est GFR ( Amer) 107.2 (>60) Est GFR (Non-Af Amer) 83.4 (>60) BUN/C reatinine Ratio 19.6 (8-20) Glucose 110 H (70-100) mg/dL Lactic Aci d 1.1 (0.5-2.0) mmol/L Calcium 9.9 (8.6-10.3) mg/dL Total Bilirubin 0.50 (0.2-1.0) mg/dL AST 32 (13-39) U/L ALT 35 (7-52) U/L Alkaline Phosphatase 85 (34-104) U/L Troponin I 0.01 (<0.04) ng/mL Total Protein 7.3 (6.4-8.9) g/dL Albumin 3.9 (3.2-5.2) g/dL Glob ulin 3.4 (2-4) g/dL Albumin/Globulin Ratio 1.1 (1-3) 04/25/1 8 Range/Units 14:43 WBC (3.5-10.8) 10 3/ul RBC (4.0-5.4) 10 6/ul Hgb (14.0-18.0) g/dl Hct (42-52) % MCV (80-94) fL MC H (27-31) pg MCHC (31-36) g/dl RDW (10.5-15) % Plt Count (150- 450) 10 3/ul MPV (7.4-10.4) um3 Neut % (Auto) (38-83) % Lymph % ( Auto) (25-47) % Faulkner % (Auto) (0-7) % Eos % (Auto) (0-6) % Baso % (Auto) (0-2) % Absolute Neuts (auto) (1.5-7.7) 10 3/ul Absolute Lymphs (auto) (1.0-4.8) 10 3/ul Absolute Monos (auto) (0-0.8) 10 3/ul Abso lute Eos (auto) (0-0.6) 10 3/ul Absolute Basos (auto) (0-0.2) 10 3/ul Absolute Nucleated RBC 10 3/ul Nucleated RBC % INR (Anticoag The rapy) 0.92 (0.77-1.02) APTT 37.4 H (26.0-36.3) seconds Sodium (139-1 45) mmol/L Potassium (3.5-5.0) mmol/L Chloride (101-111) mmol/L Car bon Dioxide (22-32) mmol/L Anion Gap (2-11) mmol/L BUN (6-24) mg/dL Creatinine (0.67-1.17) mg/dL Est GFR ( Amer) (>60) Est GFR (Non-Af Amer) (>60) BUN/Creatinine Ratio (8-20) Glucose (70-100) mg/dL Lactic Acid (0.5-2.0) mmol/L Calcium (8.6-10.3) mg/dL Total B ilirubin (0.2-1.0) mg/dL AST (13-39) U/L ALT (7-52) U/L Alkaline Phosphatase (34-104) U/L Troponin I (<0.04) ng/mL Total Protein (6.4- 8.9) g/dL Albumin (3.2-5.2) g/dL Globulin (2-4) g/dL Albumin/Globu roberto Ratio (1-3) Result Diagrams: 02/14/18 14:43 02/14/18 14:43 Lab Statement: Any lab studies that have been ordered have been reviewed, and results considered in the medical decision making process. - EKG 1425 Cardiac Ra te: Bradycardia - at 51 bpm EKG Rhythm: Sinus Bradycardia EKG Interpretation: S T-T wave changes EKG Comparison: Other - no prior to compare Hypertension Course/ Dx - Course Assessment/Plan: Pt is a 62 y/o male presenting to [facility] via EMS fro [facility] for EKG changes and high blood pressure today. H e denies any complaints, he is asymptomatic. Blood work and EKG were obtained. I disc ussed pt care with Dr. Lemos, coin purse assembler, who recommends admission and a stress te st. Pt refused admission and states he does not want to stay. He would like to be di scharged and have an outpatient stress test instead. - Diagnoses Differential Di agnosis/HQI PQRI: Angina, Hypertension, Hypertensive Urgency Provider Diagnoses : Hypertension, Abnormal EKG Discharge - Sign-Out/Discharge Docum enting (check all that apply): Discharge/Admit/Transfer - discharge to home - Discharge Plan Condition: Stable Disposition: HOME Patient Education Mat erials: Hypertension (ED) Referrals: Eleanor Kang [Primary Care Provider] - Additional Instructions: Please follow up with your coin purse assembler for an outpatient stress test. Follow up with your primary care provider in 3 days. RETURN TO [facility] ED FOR ANY WORSENING SYMPTOMS. - Billing Disposition and Condition Condition: ST ABLE Disposition: HOME The documentation as recorded by the Joseph macias Angela accurately reflects the service I personally performed and the decisions made by Anamika crabtree Emmanuel. <Electronically signed by Bryce Willson MD> 02/14/18 1626 Entered by: Bryce Willson MD Entered Date/Time: 02/14/18 1618 Copy to: Eleanor Kang FUR DRUMMER Name Value Range Interpretation Code Description Data Elsy rce(s) Supporting Document(s ) ID Date Data Source [id number] 02/14/2018 03:34:00 PM EDT [facility] Name Value Range Interpretation Description Data Sup porting Code Source(s) Document(s ) Sodium 138 139-145 L [facility] mmol/L [facility] Potassium 3.7 3.5-5.0 N [facility] mmol/L [facility] Chloride 104 101-111 N [facility] mmol/L [facility] Center CO2 Carbon 27 22-32 N [facility] Dioxide mmol/L [facility] Anion Gap 7 mmol/L 2-11 N [facility] Glucose 110 70-100 H [facility] mg/dL [facility] Blood Urea 18 mg/dL 6-24 N [facility] Nitrogen [facility] Creatinine 0.92 0.67-1.1 N [facility] mg/dL [facility] BUN/Creatinine 19.6 8-20 N [facility] Calcium 9.9 8.6-10.3 N [facility] mg/dL [facility] Total Protein 7.3 g/dL 6.4-8.9 N [facility] Albumin 3.9 g/dL 3.2-5.2 N [facility] Globulin 3.4 g/dL 2-4 N [facility] Albumin/Globul 1.1 1-3 N [facility] in [facility] Total 0.50 0.2-1.0 N [facility] Bilirubin mg/dL [facility] Alkaline 85 U/L 34-104 N [facility] Phosphatase [facility] ALT 35 U/L 7-52 N [facility] AST 32 U/L 13-39 N [facility] EGFR 83.4 >60 [facility] Non- [facility] EGFR 107.2 >60 [facility] Because ethnic data is not always readily available,this report includes an eGFR for both -Americans andnon-A frican Americans.The National Kidney Disease Education Program (NKDEP) doesno t endorse the use of the MDRD equation for patients thatare not between the ages of 18 and 70, are , haveextremes of body size, muscle mass, or nutritional s tatus,or are non- or non-.According to the National Kidne y Foundation, irrespective ofdiagnosis, the stage of the disease is based on the lev rosina can function:Stage Description GFR(mL/min/1.73 m(2))1 Kidney damage with normal or decreased GFR 902 Kidney damage with mild decr ease in GFR 60-893 Moderate decrease in GFR 30-594 Severe decrease in GFR 15-295 Kidney failure <15 (or dialysis) ID Date Data Source [id number] 02/14/2018 03:34:00 PM EDT [facility] Name Value Range Interpretation Description Data Sup porting Code Source(s) Document(s ) Troponin I 0.01 ng/mL <0.04 [facility] ID Date Data Source [id number] 02/14/2018 03:33:00 PM EDT [facility] Center Name Value Range Interpretation Description Data Sup porting Code Source(s) Document(s ) Lactic 1.1 0.5-2.0 N [facility] Acid mmol/L [facility] [place] Severe Sepsis and Septic Shock Manag ement Bundle Measurerequires all lactic acids initially measuring >2.0 mmol/L berepeat ed. ID Date Data Source [id number] 02/14/2018 03:14:00 PM EDT [facility] Name Value Range Interpretation Code Description Data Elsy rce(s) Supporting Document(s ) INR 0.92 0.77-1.02 N [facility] ID Date Data Source [id number] 02/14/2018 03:14:00 PM EDT [facility] Name Value Range Interpretation Description Data Sup porting Code Source(s) Document(s ) Activated 37.4 26.0-36. H [facility] Partial seconds 3 [facility]rom[facility] Center ID Date Data Source [id number] 02/14/2018 03:13:00 PM EDT [facility] Name Value Range Interpretation Description Data Sup porting Code Source(s) Document(s ) Troponin I 0.01 ng/mL <0.04 [facility] ID Date Data Source [id number] 02/14/2018 02:53:00 PM EDT [facility] Name Value Range Interpretation Description Data Sup porting Code Source(s) Document(s ) White Blood 5.6 10 3.5-10.8 N [facility] 3/[facility] Red Blood Count 4.67 10 4.0-5.4 [facility] 6/[facility] Hemoglobin 14.3 14.0-18. N [facility] g/dl 0 [facility] Center Hematocrit 43 % 42-52 N [facility] Mean 92 fL 80-94 N [facility] Volume [place] Mean 31 pg 27-31 N [facility] Mean 33 g/dl 31-36 N [facility] HGB [facility] Red Cell 14 % 10.5-15 N [facility] Platelet Count 226 10 150-450 N [place] 3/[facility] Mean Platelet 8.2 um3 7.4-10.4 N [facility] ABS Neutrophils 2.3 10 1.5-7.7 [facility] [place] 3/[facility] ABS Lymphocytes 2.6 10 1.0-4.8 [facility] [place] 3/[facility] ABS Monocytes 0.6 10 0-0.[address] ABS Eosinophils 0.1 10 0-0.[address] ABS Basophils 0 10 0-0.[address] ABS Nucleated 0 10 [facility] RBC 3/[facility] Granulocyte % 41.3 % 38-83 N [facility] Lymphocyte % 46.3 % 25-47 N [facility] Monocyte % 10.4 % 0-7 H [facility] Eosinophil % 1.4 % 0-6 N [facility] Basophil % 0.6 % 0-2 N [facility] Nucleated Red 0.3 [facility] Blood Cells % Medical Center ID Date Data Source [id number] 09/03/2014 12:54:05 PM [facility] Name Value Range Interpretation Code Description Data Elsy rce(s) Supporting Document(s ) Progress Note [facility] [address] JqDQogIDw8 DQogI XMfV2G3rHv vcigp U7QocTwiKB kvU3V iamVjdCgpL 1Byb2 U4X6DuBRtd S2V5d 16aPUYcOX5 DcmVh dGlvbkRhdG UoMTE vMTIvMTQgM TI6NT M6ZTVyM97d ZERhd SBzMC7OirC hdG9y KEVwaWMgU3 lzdGV feuKGf7Iev 3JhdG lvbikNCiAg Pj4NC bNnMW4ziy5 KNCAw MH8eds1GRN A8PC9 RdOg9MNIlX 0ZsYX NtAHExw8Ak IC9MZ F5dhEkwRfE 5Nz4+ ZEitICN9jf VhbQ0 KeJzNnFtv2 zgWgN 0A8T7scAbn gcQWR erCPCzgxOm 0RZO6 iTfALPLCSo zNrS4 eSU7q+fV7S Ek2nc TTfTEVFzVM UzY/n TsvMUD7+ALIYA 8URR4 +HQcm5sCnm YBEff 7l0kO//wHb D/4p/ mwF+IjgtPt B3avt f5x1W528/k cxh88 8PH9+QNSLC AOGZx qSrZ3fRueh iolT2 C+LHNRw/27 qxv4D WjACKX8/v1 7mP8X SgvdfLL2Gs fxQka 1HTOkaPC1m EJCuh 0yYT9lw2Ih gfLB9 w4Vsd0EbcB OPeI0 zq5bhgN9yb 4HAk/ 4/3NnqIGHl hFxji 36yPE1LRe/ 9k3gE o/3ECgIu3p Bv9Jz FGSjXdJrd0 SJZz1 VnfuTqPeyR smiga rWd9UdZhyK 1G9J+ ePI8QRFPDy +Gqgl yXslQ4826o Vez8V xPrFu4pcu4 r2d9i UkDUIb13YP w+PYV v+1yOUbUTs Ntvrl kW+V3TWRXJ KkIWM 3Wm5Lc63Ta CygYS ia6oYhhi01 DCI+F vtS3wZ0/Xr +RsQX rPOfnWZ90/ bhQz2 DiC/gxN+Gabe 5Kmla wyUEBNp52G /NiL7 ah4tHuEFia cWhY4 Q1iRDpZtye WXDsO +T+KXVbhTk DaS9S BXInMrhzYS 9MMTf +yzMeHBMSv QlxCt F42EJSSN4s SR6MR 4UVaVTBpVF iIbgo kxw/RBJCpT zWYIh DAyCDcNJo7 TS5h9 lvDxS5wyRA C41+p oMruEu0/XF 5fXc7 j+AwgNSeyU pw0gv x8CXoxGMRe FKWSA k+pDYZ0FY8 n+VY1 P/SjUcHeqV g18Kh 7DWdmikO8B qjCQl JKukEfaXYH /4v03 UuAbLkpZbA Ef6hk cmTE/7sGIL mC2yI v2qhbUP03U 0ACre z1PySrAQyP PsFmZ pc9Hd7m4j5 C2+dg 2NYxuKtPEh GZa6f 21qq9CsYCn iIKwN m9ZDNay0EV PIDqK QubtdDSVK1 E1OWZ RX5SvAgRB3 DMQhI u8amNEkikn DK+aX fzhITjh4Bu mslY5 lpEncCUqVQ u4xFd Sl3Ztgnzaw 2WdqQ Yu9ObOJcMK JSuYV sOcJfC3rh0 qmQ6d fYhKxEcp9G JPYeC 9oBFO5veaK YIl1S iXMAH5dN27 S50fW pmCHEnuS6U ulmV1 Dv0SckbPel yvCm5 ACbU+0tPdy upRJd K1iALK/B3E /bu9j AAgv3ScVvk 42xzi iLXgjZdb0f P7xgf hdnm7xHazu AcyW2 5qlShxzCrz //TLM KXCP4CwD+d uGdkI +2ErYMOGrc 4pOzY ddGGucvduG fD4kI iGjuydc+2J aADXi eddUFfk4MK +Fcdt ZV8Yp75yP5 jMA4t BLYrjFzS/9 qkO5z JVjftSICDc Yni9h iktYOqa5sb fP3YQ EN/qQ2rrIi qFT6c IItMBZh8KJ wXZY0 eRNbaqQTgG iPUJi t6dnOBkLmv OCWig s85GlO1w29 D3d4P wegi0f7MbV /vn9t 6XUk/zsWhz C8Ejy /6Tsqhxfmi WBUEU HvcLts9udq OsKLR fDn8YkoJ89 SbNWT EqiiwDgQZT PvhOC RrjygcX7Sg Bm1NA /eAfJTxhjK 71Pgj WkMoOeD1Ru qDt7s PsYgbTCmYi E44DV gmLo7yQPat moihr mcKTapYwvQ JV6ET GL4EReWPTn /3oRk t5yOepSdd8 cU8fE on62SglDid 5qNJs K521pUxQ2X BAlLc komp9rhXLM meFfI HiSiTmxFRs TjE8Q sBe0rZilRh 1q4QG bVDLscG+vK wKpB8 EBgCSc0vqe LIXSA DrQjUD+EYY c7O/c zKY87zYI9J rE0xs erGMnVEPVv kA/hI RxjUaGvypH 3hnjo Qwy8QgcRJ/ IPq83 RkbACEMTCS lKAYs cR9FCMS1IA OKUmA sOIi3gX4ER hISjf Pdje5lvenF kuRzC h2APchbRUP vMbVX mVqpVOZKmL j9Smw VsMAU5CoyW LmdDO BKMW/X1Wzu RhY1V aw9id9n9oo 0RFvH fbyY/2cAWs 78sKP PUg8rhG6A5 zPIZa vMfw62NdpG 3ybMY 7GhX9lSNJ1 /LVWy hCilj0Hb6T dPRXZ cTyrLtHwxC y3Fo4 TJFSyydYL5 HxOUS LGrbvN+uc5 S+C7t VnytN2l9nH vqL9X 0H6OabmZZW lNWEY /EJjIhUiGr 3X0Mg pWHqm9rNYN Vj6JO TDJLynyVdR aj15a mK5PcNAPuC LPcnE FiE5zv62c0 rwfgJ 2RF5DcIA/i X4xKu Cl3Tjz9qLW Z3A8R LBgZJ5L9VN 5Pzy/ nlLdxcfpnM L6dw8 /O9wScDBTu YcEFG dZ9LUThaQI GFt5T Jjxp+ul4eo CS2od kIqoOx3Nuz MdbAA zlO81eMyuR cbvJV U+a1/mMUzD rlIts aNhe9VuU4M MP1ot dZbQS2HFJq waFRu clOG59HmCn AYvjh fOwXY3iMHk Mav5S 0GRj2fzKVg V3IGq NbUTplIkFs mLq/Y GUnk79JicV vpfoL DercBbs2sJ dteT+ C+tVA0fFAF OyCWN LwYpvjDCfD P8onF 5u/q3IAir9 MM9gI wfo1IHTJ48 Hs/t1 KoISapayVk ONinX /K9pceNTHg vz9za 0QhOrXFPIj tUBaZ wisYwRdRNy A3EuR PkbstBPyAR xaMPv hY2oRyGg4A JJFva yguYY0LJQ3 /nSWy MjWcY/vA6M ItnmH us8tlgoIC1 mvbVN NJ0Zjem06o KkfmU 9oG/5cPUSx UIVxr HK4Ci5fPgC EWh4e OwdOCiIm7y Z7ZJp lY9/Nxx3Ji gT4tt EOnDc7U7Hq kNP80 hF56vK6lir UaRiK cm/ouHsGsT JVoKl U3R/drAj7b bT61h NU8Hmkzjup +636R IFW8EBriH0 geT+7 cOob4ZCa1K upphm cHWG9+x4kB PCH25 26g9PAP61M 0LwiY Vnak4/8vSP x9En3 ubEeiWwORU Iq1zZ vLvGOiET9F 6lsS0 7gG0q34bx3 7L/8H Fu5Ah6IiMO N0cmV rcO4PES4zl 2JqDQ j7FOIoh6Jb DQogI Rf3HKwhZYW gL1R5 cGUvUGFnZQ 0KICA kEB6OQJCjj nQgMy AwIFINCiAg ICAvU jYsq2YgU3B zIDIg MCBSDQogIC AgL01 uRRkzUj03Y FswID AgNjEyIDc5 Ml0NC tMuFKHnV70 udGVu dHMgNCAwIF INCiA pHu7ZQbDnN G9iag 1UWjDgYY6p ag0KI KY9AC7JqIp 0ZXIg R0GcVXBcRC Vjb2R eRF6YLG4pa GggMT k1MT4+DQog IHN0c rWaaX3MpAn Nm11v 0jYBft3X3G 8cYDc k5HmiqoyYq wA3Th L5pYa7pkV6 7kKxG SgoWVtP6TQ 79TuU XLqMyDD6qH 5d1JB Q2MhNg3le6 ZEMUL 2+gdXnnoUv KP81J 94irRFY5ip wvoZf f4Hmg9/KD1 s+vji qOV0vf0qKU W1Pvu nuLE56x3GF v8/uk WIJge/CScg 8mC16 p9ssk+I1zF bpOsr ui239fm/A8 VzmOO LqF66k1nCI ZvDRZ OvKW0R8ggL k19FS QLfxGfOdJr 7dcWy so95X5T7Du +557a K0x22G6oh3 h1nGW 6bNyZhbeSB Ll5nI e6xDS1EI7Y OMo0z mEZzBUORyn SZo3f KSrqXz1H0h 39gWc 0UGt34Pald o5nma FDLZikUnVr afDjH l2oQgHNA1C I2yhU pxgTlj1i2E iY/GR oJh8yTRaFB ZHYrN /FChXEzGZ/ DucjI Ffhqb7njj7 gymZ6 tP0XQPdgXl hfQ+y lRzG4xAd+k C8u0y yj07HNpwWN tE4zY 8SQqZiBaIl BOI4n Z5UMQDzT9z K0JZH OaFLRGtLKE d1LIg EyXxLn6i01 ACVOk 65YiQA3v/B sZdPH Mc92gs2H0n hwVMY n6So8KboDo KnazA b4E69A+rKf outrd f4HaqwI2G6 Tp5AW OxkPMohguc mNPs8 YBs/dBxjDe kefaX 6TkweMD/H2 rOwAF h1uIu9TbdX ALu9z DwLS5Q57yk srBc5 IYyWiZpLg/ Zuz+j IA+CWikcsK aE+1p INKxgGhGjQ hx6dN jmGA0D/ErX dX2M/ vfvlhXwP/6 B2YfO 5gjGgqABUB 66Eyr iRL33FzHWx RUQU0 dVw6AuOHMJ D0NaX ZwG6jEMkRC iyWWa EMgQejatDB VAJUM qZ2Cq2aOkM gjPtj yHWFVT66Kx okIWM cxQtCb1vPk kxvBc G9IXuePnFn VG7Vc 7EOFlwuXbj DfJxM 24Ys0sIrKr vgV+Y ShBt5hKRCE ZhO9y L0zb5wFhaF 65Gv5 BAvG8gZiRk Uz8jW xiTwtNNlHB aBEvM ZvIolgWx+J D3Gf7 y2Vt13Aclp bRKtL uLG12JgY8D QP0Bs nXWOD+MVuK g85n/ 9gvsk0D60c WMn48 ydhIf8WDvn C/2LO 9bDMuNQz54 kLvXS oOS9Plu+1a J4cHp hN8EnaB4AA awqmI ekWzZc66t1 pWrRT sanGA2qCLl LAVjN MjrCWg2vov yUXR/ XmJl7F3o1D Aze63 +yx00U1Nv3 5MTke WM6dV5yag7 78Ofp ssG2E3mP6h tjvHN 82HlusAs+y X8/yO FrqJPlQEqm O3d3k FBYXSr2tRF bqR84 Rk1CADh2YI W2fSA G1obbfX4FG CTYpt 3u3tOI+pgl 9Noh4 LMPeOG17dg 4Jh9A iKTWQEncM9 2mKXB wx9N7Bu9mB R3kXz eUrSPxrmKi 0gTeB aidU2HBVJw LbyVh X3MwO2UwMx mj4ou qPh6LA/dtz Ptzhn CTJ0dyYCWW ziWGR Lefg1+0dLp XqQhZ sTymRbqBqh OrzOR N3Z7Uoqqqc yd0ZD P2kNQyIZqh fRHS1 0iyhjnlPmI dWtwi SM1d3T0tev PN+s7 Y2qPwWejoH C3sjl kSgYOMyvZX q2Ydr bRONETaMVH Mp8I3 C/dCQyhqHT amU92 bvvbaLZeGo aLeNU 6IrND0enFW Boy3s 1QS/KNzKTC QQMxu cZMQsr8Hgw T3jqu UHzzKKvQsG sl+rB b4C1URdqoW T82Cf oJtvitDuWm qAX4Q 82j3V9VWbO n3uXo +sR7tE/v8I xRdtv NWDZbwhzHP 3muLS enQtid2qgO Ol8Fa kVBbng6T0o CPW49 +l0Bxo2Qo4 1/IBs JlkfHVhE1E 6n3DO XFln838m0a o/Wqb XB4qpAGcZe 9lZ/T dCTCXYNjvl lHOFO U9NluFobaM 5vyrF vUdjHYdWjj 7dXo9 fh5OEV6Tu6 jyDsN JDWaVRCAMI UKRQr PbkTPM1Fm1 VBYyH HtRithTRBY 6FMLL poKyEDxq01 9nJ0B VNCE/meezQ mqpXa lcBKOpYQ2J O0eTU ehHRxno6Kk YrZ81 yHhE4f53Ir xLauC HpxmkdZEal 06HTy aTBQZvaIs6 GarVz OvCPJhtzyZ z+UXa YJemtRoHvX ZQpb/ v7k+mJwflb 2G8kk 5LrV/RFSz9 TiaM8 1Gh7wLv0iB hIyLU /pXHiQyNPN vLPrV 48uBUTCcy6 x3kdz dX8lCmoWjA mZFyI LRdJmj0P6m NlwGp f1tCo2CL3I /ewnd vGjzCu1KL7 m1hli x6Lv1G/Cqr P4MCW Te4Jc0qVaq 0qUqg 6gzrpHMaOv 2/ogC YwAor8F0lo YzOjr tlxFwmJGV3 6xSIW lhVj5kcEcx Ubn3Y qlqV+RsJjR W+/Ss JjRW+/SsJj RDe8S QJE626PFb/ VueUb pTf7Q88RvX MzojX eJWMzojXeJ WMzor CjjbIf583l e4V11 UxbyrgV6Nr 2LGb3 5Tn0ORn39A g2LGd 3wLpEwpXcd xlnr3 fKMzLuapa4 W0LCY 9EgcXsPI8C vvErG Z6RoxLnwPl dcPue PqnLom0Xzk qUeSs JjRW+/SsJj RW+/S sLjNVh1VOI N5N+S Q3C88Ixbqj qWp0p YmjQMe38Dk mNFb7 4WxkHKI0+6 A+Wh8 4ccnh/8B8X R/f2V qTQP0fyShm Q0KZW 0wi1BxIJb4 IDAgb 2JqDQogIDw 8DQog KDSlJ6F0dG UvUGF gQR6HOHPyC C9QYX JlbnQgMyAw IFINC iAgICAvUmV zb3Vy D2ZwRQPgIX BSDQo eWWGdI11yO GlhQm 94IFswIDAg NjEyI Rg4Ao7WGrO gICAv N33mbXCvgZ MgNiA wIFINCiAgP j4NCm XyVB6eeb3T OCAwI S5dgc0QGRJ 8PC9G rIk5LZJlE5 ZsYXR zPLUox0YzH C9MZW 5ndGggMTMy NT4+D KlpJED9qeP hbQ0K jGgCpLtw7l YUgN8 P3U3biNjWT rMikr knZQIVr9jQ OE1sb l3JIAJwKbD WSXQp Sqv014kQ+b qs6JP PLNinM0oLt 8PDcy QTv6hA4xj0 Fw8wf 9sPjmsOCGO 6uUxL +CPX5I39oH zsBni EMNg+sLva3 vyPew edXwpa2P7V FL9PH pFiDlHgwSA mPiTZ q/JRqBw4Do lClry G+1eTKfwMz PcIY/ H969eQ/APj BO722 P8MPolGD9m yWz4X 4U86TaE7cp 96lk3 I9jzWcHi61 L6/G7 p/mAteY6sd xN07q iOxCwB9XpE kXIm6 hhvZiBoeVj DhKq8 3nLOb9lkCG ZruZA V7wGUsGKqR XeIBo acshtsJWnM qqyav IvL4Yhd1rV lREsR 6BRL8r0NC7 j1Ktf RkIeCxLQpc XoOlz KsGlHjKxbO 2sXpV A9ScJu7KLo uhnvN aQCXmvMmfB IjPqV p8hQ2oYlVu kFdwe XvlWBhKTCN jDpd/ xu3Uu7ce/j CcHF2 lZMPheHh/d 9oYKS BI4RLa8dBX 82fe8 KI+PtHFA4E 3Qox/ wRB1CDAV+P 92DUg pLoYABzGgu LoV2s O2velsT0Ud 2oAh4 j7xt+4cBfn QAF9O /MbQP43q+c 7nGI/ Nlw7mDx2BV kShxj x73hr8iGXn lk6Jd 6Od33WkF9V G7RXa vwIJYDLE4U 3MvUd ipmVfiny+a GyMfk NAMKtlUGKw 9X+F+ CcbgdbzvEC jvLen vZKB4Mcuq0 9z1Aa JYigerKgj9 k3kP5 PZCjCrx/he ZeKzj lO7xDJNF5u /Vf5N 718fPZZ/L4 b6nm8 i+/sGpoJne TWv4V IJOy444JVC cZXKt mqEOmpk/YY e/ZCQ iKlfq20MNG ohWLC v477q1KSgO 33+h1 MXhJRZnroN grX4G JuwA3VVv3X XS8FV DXXDHwoBso KUl0L x/lkd5xxAi vdHMr fzgGX2Cw40 Hc1OY J2VdIbWD3F wahNY qixlnetaBM nbssT k06y0WizD/ nfooW yirjqq0lzP xRFP9 gXi8YhPs6U lFOsf 6uXkmgrbAo ALIYA+nW 8S48UlmCRn ccGhO +aIH+uBBbI FVooE StbNsNC8hC WhrME SNS/fHRnxG QYw+s EKLEBQIOuf bmQha gxyMgCjaKP lt0LE p+YDCbBWta 3ooow NU50owGCwA Yx4GQ Zx5FYQULnV Dzxoh U2QGho/HMy uwTqs Lj/CEFIGBk /dTUZ MlvoMEwx9U S6rPN IV4qR9CZUE 4FpjF pwVITSyHiq G6lKX jLvKWID0cU NBJ6a LmNyZoMrjI 3/GJ7 04LmhSKD70 EOyyE 77dtrR562V Uek+B bSzM0f477i lURjv j1Og4pi3yh OOttm td3CiLcLJ/ 5w3C7 QBNIZGqpVu zY8mA woLoVugUkE qq7ot Onq2TOPjiW DXi7p ej+O2emNER vPzYg BsxsnLMS7q JrgZx jpH+x2TNLi QuOrR vNsqEwrCX2 ywM9f KahQw9Xxkc +RVig lcjQUrlKJB 7ZZYU WJEpJ3qAGv zq5EN TL/M9fEuMo MiX+Z y2swSwoRbn sMOab ONBgWvmrbG TAdnN R0zaTcduXp geW7g gfPLTe1N+m pTiXP rfbaHxAjrk J5lW2 R9mBonodto oE7Ry +itylLworZ B6AdB W9ooakLcpT GtALH Ej841iDOHs bhDWh v9IaV0Uv/y hutVO YJCPInCApj vhvQA hU8kxGBs+c o8Vej SLuyoGF35t aDS3v mY+3+He+XT C0DoZ 2R+u0k+Y/R fWAYF ultgPhWHu2 R3e2+ 3E3g2VqGPP WVlbm DkuTEzCK4Q CmVuZ W7gnt9KMGI wIG9i rq0VXEB2CU 0KICA dOZ8OuSMvK 1BhZ2 UNCiAgICAv UGFyZ Z70WSYbALK SDQog DYZhZ6Erb9 91cmN lcyAyIDAgU g0KIC DsPB8RWLCz YUJve CBbMCAwIDY xMiA3 OTJdDQogIC AgL0N vbnRlbnRzI DggMC BSDQogID4+ DQplb mRvYmoNCjE wIDAg h9IxRRsdNT w8L0Z pbHRlciAvR mxhdG VEZWNvZGUg L0xlb gx2vEXdQKj 3Pj4N DlKtq1PxPV FtDQp 5uLVsL5/cO BaF9w MPs9sRaOJI 7ej98 KySONOdoJ1 2bM8u J3hMiaEggi qSKm7 Pr5/Ll0R2e mteAn Y2ljAppCj4 ziWpT yRlGLn6MrY LMo/w C8R/y8FFJL 6grBP 9cnOAf/4Dl g9+Fx +LIepl2Aq6 wPpqe fNv3rP+rrf 38Po/ EST4/ftHVL GDqsj hbH2awG++e ncax5 adwf1+ODQT fHl1f Qv/paSU6yY tv/zy C9x/hff38N nU9lK 45lgP2yTKL bNj4L Z+MVjiNc9f XDsp1 5NuqSL77Ek fh56/ xX9Q409I44 j4bVT UYscM1NMg3 I1smu WBKWZTSc0p uhnbq VU7sQIc8eD 02LrX Z3CJTEGPwj I6ieI W2dHihgTaR rt5M/ Rz25/Y1kkr J/Kashif wtsJxxFcgG /ND/Z OLN+aof+Et 7eQPM w/ZFmZ2gM2 mHbPB Ooq+OCqzuH YzO3r Z1h422a0AH baCsc 6Ddz1CsQ57 5aEhe 4eLE3bUgNH fTtPI oVu70E9FOx rlM7o iBp4ijkLq+ amW3V n262+OvQDd v22OJ DlvgtGZq1Q YHHSV VZJr9GX5Tn acsOb YHBXwH9i2/ 9Bdyy DbdfvInmfy PQWSe VNFxPGCVO+ P3m7g 2VgWmWZmIx vsAJf +RLgZhAumN R7YaN PUY/73EN2D PY4yb 2wFiPK+gjX 0X37Y AqjRL31Vy6 OV0QD KOoSunvdNr t2MTn 4aJ50Og5QT y18x5 c9a8tScZ1B uNQUD OKnRtcMbYE arMsE reQ4l87JIy km/eT vv5mLtzeSI Jz5+r u+c8nXuaXf tYf45 lGSr6C45bk auKEq 6c9IGG671q nB4Pj 7TQkI5rc/R Y+4np 6htEx+DhMH U6c20 +AKxb+/u7q PRyaZ mmOdg6fPdi 8L+3L n8xbz47gBz K3/XT kRzzf72L1P 1DQJK K293VQys9K 41vuo enxPIy/Cbs TyscP 4HdxKYPmyE eEU0+ 77BC8rB0Qk DaMw2 v8C78tSZFU x3yEc KFJ64kzHPW R19oW l06ndHMtGh +NUbL nDV468Ut8A f0z9K gWz2NepXPG LX/rj Oo00O4OuUH 2PPSx ORIsjnldiM WxZwz 9wvo6p4hDS z1iIs aRfT+1IxM9 yf7kp x/9XTwFV17 icqjD +OJLzM+Blanca gTcWp 9qZLJrMdV4 AxOPd +OiyOh5Qqi rDzC1 +eTTEyq09Y aGx/6 y6njciD10C F8cUl RzFzDF52fM cTJkC V0IRclI5q2 ny41q xcJwtHsE3V ZJZbE 9czbfR+VdS XWsmu GE/G+PTDQy d1jQ7 cbV5Iy1ZEs sWtdY xIgXi1iis+ qyhrO gvfOHiA7Ak a3DSv Sx9Rux4+70 2aY3G YgBNSRpNgv r653r 7edY/JL4jg 1MhhZ 8+6zdMw8qH jyhUN r+Y6KMFyfR XiCEa /1707Ho+Nz Nqyfr wKucN+/65u NW7Aq o8yYjJ/a3X 4mUFE khhZE28Ens PsZhQ r9BViZTnAA 18sC3 rrM9JIi+p1 f0EJe mQpJdXXy6m S4jJx n3IFU7SV/x zVxhm 54gge+Q3Ek bkZJw EpDwtuTV4e a8WHY I33OzFgxcn K+Z5t taQa18NHe2 E/KlW 2HFhGATVzQ LAZx6 uo9F8yjlzr wXw9z 038Fwvj9l4 zOoY5 dQA3em2tFk JIXUA BlAHAhBLuh FuG2t twFaWrLHZC mtsg9 wfF9dDVUtB TilCL 0TRQL8tWEY fRExV L9Me4PXxbd iD6ni R7PdTvjjPh OnqS4 jt2fxIEOHB fRJxF M5OgKWhOqn XX0JM NR9JCjhs6l kYiea NZrESTRkxT X0ZMU g4GBMAe7Uv GzPqW R6MrDxqerr oqepr vOrah8ql2I BVWnY tanNLNeiyh Ioicp mgYpHc0jw+ QVjVT M+gwj0goFH Un0JM V74YJJItYO JK+lZ GLWZzSzXou ISc7z wGri6Uypi/ TTSly P+nVCE9XAH wVxUU LHHWqIW4Sz krNMo tt38Kzml8t F1dMs sunep5144z xmfku O/olr1/Tza YJ/86 j9a97eAhMU H/0gf fMnORVh6nJ 5cRgP /Mox//BhB2 8/XLk IlHWORV0h4 scP7b S0Z27SFVoX I2/9z OpEsMqnAQZ +Q9XE 0fhkP7fb8X Mrbqd 4AlXToukZ6 Ng1G/ wOOihuTGP9 Zjj1M 3vRu0b+clv w7a+A G3mAQMlH3u fXmCX D3e2wokRU2 UsokX fuowBsakNA ldQxC hI7tDcdD5+ OynSp Lw7c1S/5z3 aTKsP 30oGh7yrtD Z9i/E fnS7fF8BBc cQMYg 7PHAwfLia2 EUDhg nT1DkAtq+O O2B4x BawGBRaBdF wIoHD ZhD6Jm1P+6 7QFj0 YdRUGPo79N ACgeM 4D7UWrzleo eMQWs BgUWgXRcCK BwwYs cToqRwfkJo DFoLC ZnA0ub6VnP wwIj9 PCHeBL7rVM atBQQ WQZ3V+SJAH jh2gJ rRIY7hpgr8 /MAtF +fNFJl8Yp9 iIorx AkUoopWl7X VAWBE U922ZO4hET eo5KO aGdvLX7lpC 1wA5f vnaaXlrBlC M3xKg qJhiCsoOUA LCisB zxbKFT0SoO qc9YA t5QXKSMJsz NA5YA hQVO+0BY9C LgLAi MFynccASoK jYaQ8 Dv89DhJHW6 TqNA5 LRZdUNg4XA 9CIgr VuZ07relNM QYJkx 6EVAWBEYKL hwoVs TfUrJ7WSCb WW+CJ BHjslQrUNl 7Ly+B UYkDniCZro LpILg UrDgiMQDT/ BM94F UEFwKFiCRe OAJou k+dXvUK9QS JBIPP YQ41JtGHXO pWKBE 0mAxgJn2QB oILgU Rsbu06NVRt B9IBc GlYFCiRkbX HtAzm 1TA/7nQVQE /ckuN l2baR4zTyW mJxAN lgF75etIBE hA2N5 W19U176O4A EkILw dHfDkh7pJe dC1pC aEHY/ETigj cIp3t BSwgtCJuhS FzwBu W6U3mYqPKh cxSJC 76wsE2JAKS 0IEyC TOkCjTw1KE cVlFl sKOBHrnlSr UvywK cVo7RNCDUL 5mQna AmhBWGTFIk LHsGc 7AUtIbQgbJ IiccE auAD4iMBHU oRNUi QueARzshe0 hNCCs EmKxAWPYE7 2gpYQ HgF5URZ28R HMyV7 QEkILwiTIl Sfduk BPc/KfAouS 9d8hk keueVKtS+L ArQCb tKm38KmtAC coCcE FYZMUiQv+w JzqBS UhuCBskiJx wR+MARTINEZ 59hBGKQqG8 SJC74 Q0DlF5ZO9O KwSYr YST1tCtVAl hBcED TRqsfvO5sa XlASg gvCJMiFJx2 7QE9z UkEalYYCfu SYJ/W 6JA+cCrBJi sQDf2 BOdYKWEFoQ NkmRu RBNzKvc5YK CC8Im KRIX/IE51Q taQmh Q5YIF7rL/M Kd6QU sILQibpEhc 8AfmV E5jGhZWJOP UiQv+ dEhzZO1irN BMglx 94e5N6EKyP eTiWU UbQf78UQDu Qi486 VSATVIkHng Ec7IT tITQgrBJis QFj2B S0wTUZZxAH kmRuO BXuMwc7TZK C8ImK XXLEYJ22Ph aQmhB 0ZGD7cOGQF d7QUs ILQibpEhc8 AjmZC 9oCaEFYRLk ypNuX aCnOamgMp6 vIo9c 86Ral+SBUw E2SZF 44BHMVcYjY MMLwi GwYve6ehhB eBRse EHYJEXigkc wVxmP iM8fDCdmBL zwCOY k11Bf5ELwf xSJCx 7VFYF9Eld0 IGySI bWWQ8cyaNz UhheE IBLdZ2f5sY 7mhII kzotVgThyz ZPV+t BYxwJskiLx wB+MARTINEZ 09uEPOVgH1 SJC74 W6EnL1OP4X KwSYr NAP4qTpPEp hBcED OBozxuE3ff XlASg gvCJikSF/y BOdUL SkJwQdgkRe KCPzC vexQCHC0Ic yAXnn BuIy2GTTXZ ajzdT ut50eu3Gzq DLHX4 rFWbpFYPyC RQwpz lTN1RfLx8N IRNUq iJPDKkSJ49 gpbgt Nk8VRYcbwC FMgmU HDu1GXsf0j seBGG C7PgXiGVAh FO9oC D94HZRnlVS anWBT SEkeNca8PI c9oIH QdgktbpAJo ES5lQ vaAluKYI+C JMgV5 78Gwmfjb/m s/Xy/ 4G1RpIhvnR zdHJl CV9DZnVeVZ 9iag0 KMTEgMCBvY moNCi AgPDwNCiAg ICAvV VdjCN7KRCo lDQog ZZYdR9Arnq VudCA kILFkDb4DZ CAgIC 9SZXNvdXJj ZXMgM iAwIFINCiA gICAv TWVkaWFCb3 ggWzA eXQB1LTMhX zkyXQ 6JHRKpPG5V b250Z O92jmKmRLY wIFIN RfRkGw2JCj VuZG9 vvc8FTBZcM CBvYm oNCiAgPDwv Rmlsd KDxZS6LfAB 0ZURl K75wNDDfEI VuZ3R pFKD8IL3+D QogIH H3tiRpsX1X eJzFl MtOwzAQRfd I/MOV 2IUnV6m4Ba yAFiS kIArpAomN2 7jFqL FmBKM3y1g5 DSliS deVngUw1Vj Z3wmw tTVIPwqIM1 RPvei TyhDFbO/Oc 5yeoA 5yB9GftSpi Vwf8e YPfY9eVE83 lGNwQ XRt4EHwIRU ahj15 MA6TZ+fWHM VJ0kb 1wqAe6oUqP OIMX+ XSq7ioYU+k bxikm Tbb/4qIk9G lN9sC TIr9nucT64 vxBy7 hJ3UXk0Jm8 Sw+CF karissa+9x9j5L Gy+zE Simon/1YDRSy Osxb0 duGOci9Qkj TnGGA ewu34bfSUK eOEqG KP4OZR0fYm Ci/GQ ODXPtSqk+h BZK1J mhyPGaBiXV eyYm8 YBkKNBP4Js rZW24 KqAa+7C9Va bUm2J yORcKnEEsD Cq7nq iDs05QymJK m66GE k+E+Wlc5U5 uoLP9 Era/Ah8MRu WfE/T +5pS637lLy FtF19 hquSnMFYWm 38E+z Phd0gxhsQv CO/20 dSL1F0IzeK 3Va1W eGqSTBqnTQ 7cb2a WYVllbmRzd HJlYW 5AQnZaHY3b ag0KM TMgMCBvYmo NCiAg PDwNCiAgIC AvVHl jHE0DRAgqA QogIC UaU5VesbXe dCAzI PWmCm0WCTF gIC9S ZXNvdXJjZX MgMiA wIFINCiAgI CAvTW WusRZGr7td WzAgM KH7RWEpTht yXQ0K UYWyBH6Vt0 50ZW5 0cyAxMiAwI FINCi NlHh8AGzSs ZG9ia u0REZQuEQO vYmoN IwWcQdQ0DJ AgNzU cAEA0OTYxB zggMz S0FKA5FoB0 NTYgO Zb7HNP5KjR xOTEg MzMzIDMzMy AzODk vHUo3LMY6F CAzMz YgYwb2QRP2 OCA1N FXpYDS2OQY 1NiA1 DDPoTPD9JS U1NiA 2QMIoCYC1Q DU1Ni M5JWVkCqk0 IDI3O XQ9GFHhVQf gIDU4 AWF8JNLmCD U2IDE lTXHlEhH2Z DY2Ny F3JqXxFsTn IDY2N aU2BFCkUnu 4IDcy MiAyNzggNT AwIDY 8QeB4LQQoP DMzID vlHaE6Taqo NjY3I Lw8PHQ5KcX gNjY3 IQBwYIM9Kj IgNjY 9KEq9KUB5W jcgNj P6KJUgINZU CiAgM hr7AFF1COL yNzgg YFQ7MNI1Uv AzMzM zSNK3CYI9W iA1MD PdWGJ0UZS2 NiAyN jsmWYM8IXP 1NiAy MjIgMjIyID UwMCA yMjIgODMzI DU1Ni D8HNMgRMX6 IDU1N iAzMzMgNTA wIDI3 GFY5EUKpKE AwIDc dIsX9VIGcJ QogID TjXWM3LUJj MzM0I IG2FGPqHuU gNTg0 CJv1ZVQ5QB YgNzU hFBJlIaL4G TYgMz MzIDEwMDAg NTU2I GK3WlSqHqU gMTAw PZH2KvizHg MzIDE wMDAgNzUwI DYxMS K9IUSsJbPj IDIyM iAyMjIgMzM zIDMz MyAzNTAgNT U2IA0 KICAxMDAwI DMzMy AxMDAwIDUw MCAzM cTlTRL3AGm 1MCA1 QVIdKaZ4TI I3OCA pWvJtCCI7I DU1Ni F6KLRlHJV4 IDI2M OV1JOWxBsG zIDcz NyAzNzAgNT U2IDU 4NCAzMzMgN zM3ID O5WrE4YBKi NTQ5I DMzMyAzMzM gMzMz TQ2IRRH5Vd YgNTM 3IDMzMyAzM zMgMz ZpIMV9JMN0 NTYgO PA2ZYrdKYK 4MzQg FvDcQVT0Cn A2Njc jOxL6SGU5V yA2Nj wlXtC3VGBa MDAgN lDlOAK1KoN 2Njcg KeT1CYN7Dt AyNzg gIoa3SDT5K CAyNz ggNzIyIDcy MiA3N zggDQogIDc 3OCA3 LswlEqj8IH c3OCA 4LUPyZxj3E DcyMi S1JiUrYuPl IDcyM rZ7KdvsByA 3IDYx NZY7DNLtRJ U2IDU 5YvX7CQXnT TU2ID P9RdK6AWyc NTAwI IW5WmA5VEX gNTU2 EZM2YqQlKc ggMjc 3JLJ9GOZaR zggNT U9GE8JWXR2 NTYgN EN7GYN9UyY 1NTYg BDU6CBM1Nv A1NDk uSoItIHF1X iA1NT SsFQR4VRU4 NiA1M ROjOUB0OKN wMCBd RC4YXD0vz5 JqDQo hTCIoXM4au g0KIC M9ZK2YYLGh IC9Ue OClM2BrgbI EZXNj lwmywC7wVS ogICA rJ8NurxSOJ W1lL0 FyaWFsDQog ICAgL 3ArN4KhoPZ 5MDUv M8IyQKWeK8 h0IDk yUF5NNNYkU W50IC 0yMTINCiAg ICAvR igyL0KpNqE NCiAg HWEcPl6jbK JCb3g gWzAgLTIxM iAxMD S7XYdcPN5C CiAgI CAvSXRhbGl jQW5n zQIhCM5FbY VtViA wDQogID4+D Qplbm RvYmoNCjE2 IDAgb 2JqDQogIDw 8DQog YYEzK3P7sD UvRm9 yqK3AxFA7e XBlL1 RydWVUeXBl L0Jhc 1BNm269P9R yaWFs O0MeK61myV 5nL1d nckYas9kKd mNvZG hkSz5TODSi IC9Ga XJzdENoYXI gMzAv TGFzdENoYX IgMjU 1DQogICAgL 1dpZH RocyAxNCAw IFINC iAgICAvRm9 udERl m5MlwYF2g6 IgMTU gMCBSDQogI D4+DQ plbmRvYmoN CjE3I SLqv5YwRNr gIFsg QiTeUJc6JL AyNzg pIxPdTPV3D CA1NT EeDWH2HWr9 OSA3M rVsSbA3KOO zMyAz FnWbCcf8ZC U4NCA yNzggMzMzI DI3OC AyNzggNTU2 IDU1N vP9KCIrBEI 2IDU1 IdW1ZXGiNI U2IDU 0UdR4AHAeZ TU2ID MzMyAzMzMg NTg0I Y1VSFC6RKP gNTg0 ITQvTWJ6Wz UgNzI bEHlqDzY6W jIgNz NwEFO8DqR4 MTEgN ss2UXguDxX yNzgg FGD2LFshVe A2MTE gODMzIDcyM iA3Nz oxJtW9DYa8 OCA3M hPbYlW6DAA xMSA3 JtRqMiE7ZY k0NCA 7LaslQwP4A DYxMS ANCiAgMzMz IDI3O CAzMzMgNTg 0IDU1 NiAzMzMgNT U2IDY yTOS0ETTuW jExID G1XpOeJvGe NjExI DYxMSAyNzg gMjc4 VAH0UqSiTe ggODg 7SOIzQDP9T TEgNj ExIDYxMSAz ODkgN VW9VXXkFpU 2MTEg RZH2JPs3DT A1NTY vDWuyPXV9P iA1MD OxGek6PPC5 MCAzO MrbSFs9MDz 1MCA1 NTYgNzUwID I3OCA 1NTYgNTAwI DEwMD FeMSP4TTA1 NiAzM zMgMTAwMCA 2Njcg MzMzIDEwMD AgNzU jFPOtDLA1H TAgNz KzGLV4WLFs NzggN TAwIDUwMCA zNTAg COH6IZ2LDQ AxMDA wIDMzMyAxM Driss C5VsVjGvLa OTQ0I Dw7GLB1EEZ gNjY3 JBQ9VQErDf MgNTU 8NLL1GhD3K TYgNT X5RWV2XMF0 NTYgM zMzIDczNyA zNzAg DEP7INH4KN AzMzM oTnJ9KOL8X iA0MD FgRTH4DQZn MyAzM zMgMzMzIA0 KICA1 VkZrJLX5ZG MzMyA zMzMgMzMzI DM2NS U6WSNeCXK0 IDgzN ZX6KlBzEaG xIDcy ToH0DzDsWq IyIDc wHyG9WkWkT zIyID EwMDAgNzIy IDY2N rC2KkxyXdM 3IDY2 NyAyNzggMj c4IDI 3OCAyNzggN zIyID nbPoS4Qczv DQogI Bw1BCT8Xrz gNzc4 TPe0YUF8YK QgNzc 8BEwnJzE1L jIgNz IyIDcyMiA2 NjcgN zU3ZNWlPLQ 1NTYg CWP4PJV5Gn A1NTY hCCP0HNM6C iA4OD upVUK7ZJA7 NiA1N URgCMJ0ELQ 1NiAy JjrjWeb1YU I3OCA yNzggNjExI A0KIC G2OGRyTcFg IDYxM HE4EZBuGlD xIDYx XGF6OQnqBq ExIDY mVKA4AUFtN jExID FiJST0GFSg NjExI DL4FcEdVB3 KZW5k s9TdEUbyWM AwIG9 jxt0PFXZ7L A0KIC LnQM4FiIDu L0Zvb nREZXNjcml wdG9y DQogICAgL0 ZvbnR DGL6nS6Lmu WFsLE JvbGQNCiAg ICAvQ ZKlCP49IWc wNS9D YXBIZWlnaH QgOTA 7G3Eop2Tiw nQgLT EnJc7XXDRz IC9Gb GFncyAzMg0 KICAg GQ3Jn619Jr JveCB bMCAtMjEyI DEwMD YhUVW1RJ9H ICAgI C5NrLIhnVV Bbmds XDUnK0L9DV 1WIDA HHyQkZz8JE mVuZG 0ltt6JOSrm MCBvY moNCiAgPDw NCiAg ICAvVHlwZS 9Gb25 8M3K0AjT8y GUvVH U0API2pGLh QmFzZ UZvbnQvQXJ pYWws Hw7sAI6Tkq NvZGl xAl3NoJ6Is nNpRW 4dc6IctplJ CiAgI NDsVygre3V DaGFy IPVyF2hzh2 RDaGF dJAQ6AX7NN CAgIC 8AcNB3rPQf MTcgM CBSDQogICA gL0Zv bnREZXNjcm lwdG9 rYYE2KQNbJ g0KIC A+Rb2NBQ6e b2JqD QoyMCAwIG9 iag0K QQZ0US0UuH x0ZXI rF1AlBKTlX GVjb2 UxQM8PHA6f dGggO TgzOSAvTGV uZ3Ro XASiIAu2Gs 4+DQo oXJE1bqPnc Q0KeJ pkqSy6BjFE 9tr7n HPvTSAkDIF M5N5w kzCEMASRUX IzMgR kSIAkRUkgw SAiaA DRUghFpgDO UkRlq gOClpuAGNA W1DqA VugV9pRHM9 2qUOt QRXL+d+1zT ggXEG 37P9/zfM/H 9T1rD 2vPa6+99hB DIPESH NNLleW5Ayu UVQzp OCUPIPcDFV QhIbp /CGs2LjMWI 5fNnv 5A2i8Q4C6F 3dd4c N6c4Ly4QlC giV9H scoxs03Z0d gGR+y qiFn+44qrr p60bV jyHIycs3A7 XNXPO /LqHWQw83l H1rZo 2+4qZLafMH 0c0vC LTH84QlGjr XDDR6 QIQElw0nzl fPp07 ocswNMKa54 54j4r j4n9oztfCh C33f7 /o3LUV6PsX rQC/U Di4ivy3Buu 5UfT9 sx7utKM3xA lfRIk QMVXs8eL7c 9wkKY p60gQi/WG9 Ixkkj s0BY6YID2N snkpo n/yS9RGAyi nmxxz GOQ6BiJldG G2lR8 H8uiV45HMg BFLto K05f87qGbV LPl1A l2KxkiYiBk bSOPw PsK1rYi6rO H0zac Nx1Z6hbcYS 2osY8 lZbXOg0GcE VUoqg GeOAW6lAhW Ejzbk 9gj7Ng8G/G klX02 cVYffbG9r6 mffR/ eKZm965RW2 ojqbi i4x1slxS+R alI8W qfPv1X78Tx 5QCKK UGnPfStbRe u0wX5 yBq13tSEb1 HOug0 ig6J/TINuV fSRyJ GLNBykMtvz aD5R3 Ry3LJLHsrc r+grh yvzS6N8bfm E7VHG dNH8I1RWwp wa6Pf 0hmhpnDDvM 09QLH Yw6ClWDhlh 9muNp mX6LjD1qev 60gDE zKI/0HP0kv CLJ+U zp8VUAKXOD 8xXqB 69erXb2RPV +Tfxr JeG5lLbWG4 fzKZW 6JdbubfpGX pXxIm eYrSYILvKW XKDdi 15UGJv/Human Resources Temp Ovp7H XJ/C1KS0lU lPKL9 Vt+zn9I6wB xmtsK IpNLdkIMnR QRa6h XR6huiKnY+ zJGT5 g7eSn3V/SH 9ZXc5 Ku33zfX8mN 2+FW1 EfzFW/EJUi QViub qT8PCNmWzO xzJLF sxC6mwKvK0 j/V7P zl7Ui2xBZS uMVa6 PG4sb/9j4p 8ZvzQ oaBJ9QLLsH 7e+kD WjZHjpCr+P 3Dr0n DNFCtMLPJ5 LEePF L/BaKNWKL2 CoeEr tQykviPfGJ +FJ8L Y6WdK95lRp ZJDvh 55fXyuvkHf IeeQS /l+Nv7BhcB 62Tlq h66LVyGhmd 1Gq5d gt+x7uq4fH 6Ed1E A2bYn10Dme Zju/G LxhSK4j2wQ 3le/O A5d9zhfxeH Glc0r i3oz2yweub RGMM4 4LABd2Fuqh N3JcZ 7LSRuB/1Zt ETfxY fiJazXuH8M LK4U1 1v14ZrlwOj xv6r7 34ZI1ETZuY HUOUI yqKd4iH1ak hyN3+ VeDr8ci5P2 yV3yV wn20kKctLP atNZN K9xuqgKnj9 TrtbV aUHtR+6v2n vaN9g N+ph6ue/VO eqqep g/VJ+tz9Q3 6R/pH xiTjBeNDV7 hrpmu Zq8H1D/fF7 iHuMe 0y3cjjF0n1 u1/xl LT7d9DJ3fN mWkEc 0xZredqjdJ Pso8f Kw/Kt8UmtF WijJC QRljRt5L/E Lplsz HcNkoPEpXR CT0Vf Pys3ym/kIG 2UKBC FdKXsbeXma qdvAx ltS74b20+g bYeR8 1fUI3ZRLpc 1pHpB cgDKfEbrpa dpL9A w3ukDfW+mN /Vw0U F8Lh/UxkAK fq8PM YopSbuHfqd dI35F v0l5aaJEci WQ40v FNuiFIpEh/ qWZpM eKEUF3uVtb Cc2Qf 8VZPR7P0U2 EhX4F 9FL5hCX8jS 7ArOh oZN1c0hlIR +R0vV k1AygL7h+h dQNEs tCMdnSjuEx b7zou S9q1vNRAr3 e1h1H 7I/M07st7m DFOVG EG/FuU7HWd YrreK NZfFleQJiZ Qin4M 9y3CzqMonJ 6CVpk WtfMrp1af1 ECWNg ohMZCckZCL 8dAQ6 /JtXi7rI7J mY45P jJC0IFgzJy KBrjB aCWgdaOMXG sdRqf hF7XRuMSnl t1E69 IDxeuBe6Us f0s20 VSxt/CXNpk TMnLf FSCNfHjHyz XRZK1 +XhXLtmeOL 3k7BS vUpfr+DZ4j xONXq i0MvAUpoyq OQ7i7 QsHfRFBpBH 6CVX6 CEYdp+6tN4 qawz8 6YTzE49CTU 80PSK uHveo0PI6P Td7za q9L4WFZ3Ps 9HeX1 CoNEdL2Lls p6Mfb zJdZNYsx3T /Vu6h Te8CazKC85 tPaF3 vJRV3aoKgA b17tM 5ax/pB3kCD 5t/ZJ jxaSfvr41A F6qm+ PnxnATuAfY BOk7V EhEfhuwioA XYA+4 CXABcRvhzr A2YBG 6JjLVA84CA qfd6o xA3cPRJOEi lEah3 oOGACGnnx7 QmMBi YDNwMbAZfi 45BZw CAsK7WMgCI 0DvW3 6WQvS0XhHa TnlVd lKG+55Z10m fLunF sn6NWmISn6 3GIba TG3lbpF3tC t0c7d LdomJaOGaX hExv6 m7ch1ZHA6S j4bXy H/SJFCQKw2 adEUB KTmskMCWpu dyakZ G/dpOglNag LLgNf sl1p3eELZS eHSlM epDXnlF/Jz K0Z+v tUC50hDLTX ke7QD 8Rih4m177p Xv0iJ 0eMhl41kxF 7APOA IxA2nkAO9f 4Pe2f Jsi5V+pJ5A JTAY2 OmiJ45Lx/h XfKPk WWyDqy+5MQ Mq38I 7Fq6DUa+Ib Kd+A6 l44Cqx22/p +AzL2 HJiqL1neCh EdHeJ sN7d8OM6s2 frvuk KiUjHSkKjH tU40h PponepTens btJj6 afO9MzK7pc 4076a sXvIVCgISN XkFJb 9CPmAMUAbM Blxwv BdEp8QH4YY sAoIA pAzfKMAnDw IvAq9 WYbSWbFD81 qV6FN Gwq6PjEcar 2kOhP gfjxisPyec VfVE+ q+mQ5aeVY2 Amgh6 Ej2KrfwrxD eIJaa DRr0O3Lt0K T+5Mb vG1u8zDwdu 7L749 gUxgNDAZuB lwyX2 qG87Kkf3jg ZwOwm 22goa4KSWO aIuHA pb0B0i6IBV ff1IH RlOCBrf3N9 NlIHX tXfDyJ/Wm2 +DiT+ qNq+HiT+oN i+HiT +pV8+DiT2r FlXDx Y2M1Oha1VY 1dBBc +PLRQE7zaq f1Gzx C+dLt2RJkz OvTSd qqh93lUwe7 ffadz 7q7d00BLQf Y+kNa 2u1ith1b9R tSMEz ZpUX2evYxg ahaLm gWm9vFJppC qEkRN oqgJiJrHRX 90RY0 Q2YeRQyKRN 2oOip fVYH49lNcZ NSmiJ lnU+ES/RAMANA Mqh/e T9H9JCWg0e QDvWQ ItE+kTEKPJ kHmk6 XB7wS1WYYI LwAmX yeLOTaRaae d3TIt f4+BGbOyhs mnkfB dLRXZ2X1pH 4Cehh s9iJpjYrgQ +GYCk 9N4hFHPVNy g7oSK 36y+kfj2BD KBycA a7NwjEfV0G kiaZV cog9xBA9rT o9knn 8aPDaIkmRT oGJUQ pGR7GVp4QN QmitG JZqLsR+3bY wlo09 qPfzWT1O21 4l/fR mKUXrh7Jq9 MHTEQ k2o30qxcVo obxLr 95Aj5NfEuB 5SoQ+ rEAEoVKaD9 qVr5+ 1KCh+lFlCC 3g2bU D7kVjgm06Z 7evaI Vp9rt/S7hA +8nCQ 3Zip3KKag+ 5mvQR k54OEK36/a +krDS i3KehkycI5 Q2CJC 8TmN3A5M/9 5GDin UxItbXexcy 2e39V mXS99nJEFH pRVxe WQ8u9nteuy Q7DPn lJkzxBqqR5 25vZs Qi8vSFU85X s9vbC 0QOj7btTKl uCapQ e8AMrXt/Bl EV6O5 p9g58p8q3j OHu7k 5kw49j5bNy dp42n nyZN31QL8v H43F5 dI+EvdiuwT wWSOO hVigB7pL0o P7qyh 0l+SutrZkU HoklN nbDY9RMeqw iILh/ IqNW8ND/Kf Q3iPC nqZIPqc9Ig QqooC g72D+toMFt jgv2S hoBbyj8pzk OiJtK EBqUKxoEFR U3CJO DlsYH2+QU7 yEhWi 9dE8+0y9I1 JSUU0 35eZkxmmyG tB+Tn nuNTZn/TTv +LOcP hDiz7aPT3v K1jST CDHWbHkoLg 7YW+S fZ1FTBbwLw dI/7B kMZ0stLYqL k3jsO 1IbklJQUNY oLiI5 /4B/ggMf9Q fB4sz MxHPk+ixbf e4ktB evAlMwFfWB ilKL6 UsDDFpwvmq 6tOzs uiL50OXW16 VK14q aa6ttCeRXQ PSori cS9VSbYGwb Y1zBM colgSEsCSm KBYBK h8kFBh4oMH hNMsP E8MyR1pV9L JmjjN d2NuKJqrvD KOgSf tp/7voD4CU zsHlU ydlFfpzyvz 51UCZ gHA34htvhC TfL66 uIYy5TlybK VTplY iMe6Ehhcnm 4NT/b m+ukGTzhE9 iaMH+ XPraFJeUXH dpEBl pj1dnQR4s2 luyc6 sCh3pi7XYO 5vKum gOVGHze9rk xGUN7 PvX6X4oXKW L6sdl 9eOyhgaGqr JIyfi C4enNNLapB LLoTt upMSVhOs6P kt0+a vYQJbyDkmI Wxu+F tbKVWqSVBF v6s4M QCJkrC4Pax RTmFE g2JsVxWRMc cFBS/ X9g1Y9ZMmI rfzal hIceJCib8o bnWv9 V4x+C5szlD re+ad Xn+6c7mBFs PLd6D lFBsFthQTB zbGlx gkcW3UNuYp CgE9a qRJ6Nry4V5 IHAgR tsvF9UJUqU w8LCb Mazx3+uTXN 4FtTI w5uJLUNWY0 UlWjC xoEhCFRSVo q2TSo q7hsjo3zD0 BA2sx fcb1krMdoB aGll+ 5hV1zLQOhp l9Mce uVdwoeNh6p Okfd1 ZaU4/NQYas udSBh UUXd4vPJi7 TWqfg Ay1HP/i0/T 8EDDp JPn0/q7mZ4 iVZhX 1dC/LuwQap MNAqz TFgn9pEL07 tOfHB iCUowg68aD p+3rt R12th9vPIJ rqdy9 8pdeadVdPv vHN61 E2z3BW94up ON+8k 7eMr3i/aCM rX6HK 7qxPX0y9Qd J0xgY lOlctD33rS Q+tIA w0ioht89+D PAt3L Uri/HngHGA xMAOL ssFFAOVDIf vDu4b BZFsrsq0u4 lXq8N TyGXR3JaEu N52ga jJCmKlf3eC U1gGb Cfx/S7YM09 mMepF sh8yxcXR0A 4qcib QJjVqza4Y2 EdL1s m2z0DdBaWZ wI74p 0Jkcg6tt1L Rfr1e k0cYuF3ewU LEMZY 0DzgQLwtAX NBpaL 43nJcX5vhn hQWoL hz9X3kKjCO chnKe IzkS4Z/iVw x6Eev GhFAklAF/k wDZDt 6AnQnmj/RK vdwHN SkR8kllWwm 9fpbF p3ZHjOcYe3 wC8Hm B+ChjWrWyi WhGC4 7risEUeU3z BYeYh p8rWHqO/uM j4kjQ Erl/vpbeAS vYIuh V+gnoXGLlr PfmCU IaF1Dw7MV9 evqD/ ibnCtRTsq0 N+9gW 8xVR8v1b7o tAjyl Ko2KuOinYu HSh4q oTqn2qIjq6 +oZGg KgIqyRNk2r fsG/s JT85In8nc+ vUX6Q mAoxqUGuIr rg/J7 cp/zuIsJjQ PA+wF 4NvID2yVIo WeZ5D CmOcvh8HN9 5TSlL vHCx929Eta D0VwH K4uOqFEoGe QTC7i SjxJI3FRtN zADGA uWDO2HVuQx TckrZ ICjN4qZBWZ 4Dn2I uimZtdqwQY 2nNWc 223lxOUmuh 2mGjS TOk+cLyyzq Uufkz XOKZcahSr5 nKLn/ gtvJMtVEMf f0z2g f07ITGcjIX 3neoc 89M2uK2fSG dD3ke AnLLNfPodw vLGuq BoOklNe6VT t7qTk RtyT2xBoc5 lCnL5 apYm1PYQbx U6BTN dWytU1K296 lKfoJ ytW6Ug+jF8 LQHvA X2Eh3xqYi+ mAsR8 N/Fqemg7Sp FVca+ 2UH1giCa4F v+vQa /erkfO3Nwc Hd/MQ gccDYLhcq9 1k0FG K/PmmS6Joc 54b/O 8HtQgrxT2z bnxpH SHPkpT6rzA sz0Qv kVQWx9FOW1 M2TJt K7OtlR90bI wpb7K 2CWHqCBRoD 6YaHJ 4UEe1yFXFX 7eeJf 6vKxzkC8Aj F3UYC I8Khmx7SMg 10Kno SzsyZcwOH/ e1TeT ozNkLlSWHO rIayh lnW/LlBfUh fl32M CPQm0WcdDi FUAmY 6boAS9o9fs oaGCZ Ja/l085rcG DuB13 vrHpOeM7Ic c+WoX ZXRgOuYe5n zFPUY 6XTftaPrON YR7Ke In3x8ShJVp lr5Tb XWtkfN7Bae +tONk agju/Zcx96 GOM90 TRd+eaDrl3 mVq2N udWVAfdfAM N8EO2 m23MnBonA1 nra1V qIdPJx3hzz Rh+aa euz+5S++ZL uUOvo BFW/MNcOWm ScxLh YD7p1mvWkE PoT9Z 9xu4MY37Qa tCNWW 475iHBgEve JGgui QX5MzU2C4c Q/81q 9rfJri4Kc3 LR9qL VaLzJpIup+ QIVhT ZJFLwGW1zM 6jDL0 8dC1+6mCx4 rbwfX hsffMpQhPN PTEUe qtPwSeaAoH 3ybVB iC7VNrSv49 Bawt9 1N7Tneetng Dh/Da rNAFqY/fHf aovVH tHZhrP4DkE 0xVN4 8S13NttZIr TRMyh mm0w6kidek kXTVu Rx/8CV96mx nRxar 2+k36B+bUC umkFd A4p+S81T2r b0Z75 0OuAVoM+2k 4xRg3 9aUBqu93m9 djlPH +4eNXLGkD5 E3qY7 Vr9oUpAPix aQWsQ qfq7HiaThq phN2L +1bIeWAh8M ltvE8 artWPEn7u2 DNsIP F/cAWrrqlF 2AKk6 zH3G2lTBaS M2glZ KohE9q0Zdr lI6RJ qNxkSgtwXl X2hjt QUVFmVRkaR F0a84 XVzgy9LORf KT19A 9+mKark+gD K035m 5rStf/hLn6 Hd2tR dJk/SDdrTf Qavbr gygUMvS2k3 G25PA hUQiG6nskg 6NSfT AXz0Oy7otQ rdVB9 g4naO0oktq pjJsg J8lI/yXytS Hep1J tAubWMri/M x9mPl XCMsJbAo7I 6SpdM 1c6Ghiwcng Aq0Zg ABKeem5PB0 S1qZ5 DPc6TI9XKl hfpmE e/qycxw64H UizaO Urcct3XEls G5Wij 8Lie3mmIps 0PwbD uvs9zFKN82 PvSY8 BiuLuD/gHY Yflhu /GuI6UvaAa J0J28 V7PCuFxZHi I2AOu NQ6z79yTgp hXeHE a8ufcM/6NY awDxl bmXEcqPfr4 Y5V2s R9TzSYSJCi Bci6i sxg438slpP BHpQv gUQNiVm2Tt kfnth er0Y8C/Xs3 6MdC8 yp98jOw/CX irGfU itduQy6qd/ y4wvo uAy1T/fkHR lgxRK /Gq+RboBPE qRWlz IYMA/Onwt3 X60xk nhN+uwkPGD 7JC3O eh4aH+0HG9 kF/up RrQ8uyPded cRkMY qfm4zUF/5w ANYbi eQdwzZ/v1B y+AUu jskmg5JGW0 n+13j abODJmMusZ xGsw5 oMl/BDoCYF 6VPoK GMnjuMuQu7 NeApv i+vEtd6b1H c79q6 124Y8zbaAy dH9Qv oB+i4mVuaC NAC0F ZYBE8mL5iq 6Fhji 45F0/I3Oh1 vjz/N xQd7eAhZNV s/++y XHVHyXaY9D bskEz YkUdhn/yCl hCdgi 75oSfwAPRQ EehrC OKv5svUzKM 7NcKu JR4Z3ZPJxJ +L8KM JCOxN4jakk oxF2G 91gdkTj5BF f/J5o u+/FsHM6N4 uA66E +w7S2uCIiz V9EnQ d+G5XbvpKu 7LiT0 3Kon8oXBvk wX8VU Ff6CrMOnL7 BtkAb pF/LYHvkrH 3of52 ee//xUylsl qmop5 dJvFFPgZ0s fjJ1x dOHLBRj4No /hWiz T1CEtlFZ5b zvwe4 LNt/7/Ngex 6EYz8 ae8Llxo1EB tmQ7m m1Ztp+V/Wh TtX9T dizKJWrnUL ad2X5 t96liU1ZS9 szAUP UZz/t8VS97 3WiuW 8VXtAGIAuJ tOgM8 48hF0yFbzw jI99f AF13PuV0VC MGCeQ ThSaTIvo2Y u1+DH oK/I+jXzpr m6Naz zBhT0lT/tv /nrpH /xpqaYWNyC M4X7q C/yxTV6QG6 5+JCa /e/vZafZ41 uvk7/ x55ehAtJJe QyGO6 AuZcRapeeZ QdcwH 8hO/fn+kPt maximiliano/tD 4IXRF4tyjs PlT3H nomjuCaEzL ufC95 b6I+etv2dO oTO46 n0NnmDB1kI AT3Qx E3Yf2QzaS4 3OwJY r3abHHkQ4x NleB6 hDPgfBbBuN n4OWs KfbOvATe7w Nk/B/ 2v4o/RDirf YRsWF 5DlUbtk+V/ Yh+kz pwVu4/tQTG AS0Ae rRqs2N7e9A Zb8us eryPlcvNb/ WDwMh NuAFaV+6Bn gE/kj 6I1IQ42mtB 28H6E E+znhEYu3F fh97+ izOLPB2TyH MUGfL p2mD6JtC+l E++zL /mV01IzbQ2 VLdoy kTYzw0trqf j+Bear szSv5kIQbm 8rsz1 JdbBiVgPw3 jtQLk S1I1SLS5Zy b+kO7 QWlGufIbdz zpL5f KbDK0oQbsZ nGM3P kd+y7ktunf Uydeu wqozdf7buh rua5X zbzc7WC8q4 W8Hwb oBi2Ckz4Ed gfM8i dd+0VruHli DsHvd NvP3jYt3au HfWVV 9Yb0C1f6xZ cU1nm ktmL33TAe8 JNJLP N9zF80Ef4G Mt/VK kB0zanTwdo bDG1w IV1n2F+c25 zzvNF +2pmws8eJ/ XtOaH ntNPorHaQu z7nDP XM1Fhbgb2C YDdx6 J4hviEb2e4 ny3k2 OUwM8WqzxX 9D59B aU79P7py+v kTNV7 DecyMCMzhS B5/c4 0p5v3s4/PB LylWP w5YZ4/qfo7 PhoGJ 7oYqy7TtuU pzBTK m877t6H42C V7zAZ XuKuvezFUI ZKJe0 8CsX78pXfR lp2F+ oI+dBiF4ka Zuke3 MPaDXyhfUH WOkfR cYq6+mInWm efpOM Htowj7bu+h FAMYf uB7+ZNV2m6 q+CiB fXCZ48IR+m +tBfG si8WgEZ7Q6 r/sxy paBKB5yYU/ YScna LNgv+6HrEj B2IzC utfVEi87B1 f40VW cMIGkXyj7Z n4HCU mfITxH+Oui t8PPd 25i4sMJrOi 1P00m Co2ZLIFgla 1HJkN hEwz4QWRX9 O1puh V7i4DsHLve ogWYA n/kecFLegb KzqUI 5sBgSyHyE9 aIw/0 KANFNsdLHL GapPx Az1ZxecZCo mPUOB rRLxmaPX55 KBcKb HoTZ22onno T6+89 XjfOGpoUB4 6n+hH axN1p8GnTf /pH4F oUB4wc+ox/ n6OTk UCE/+kXpcG gqEXx paD+gn7GMb n8Xe9 VDGb4db/Se gI0Eh fY1/hBv7C3 Oa7f+ LzfcbAPtf8 y4Ae2 Dp4jI4sxr5 4OWgf wewrzbHnkb jAdAE 6+97Q321A9 ANmGC MaRrwC3dEF rDLbN xppT/1COjz If72w N+t8lAKkIo 3gvqB 4Zk3TrxcDz 26N95 +ff2ehZzaG hc8DV AKrhF9F6Xx NBoft WA+Yrt4hR9 Fn7Pr xe5Euz+4zY 9xXqf 8Uo7pf2tQK CPCWt 3Ovc2i+i9p pNK5R 35If0Apeho +bVX6 okUvB2pPbs jYIfd SNtsNrMONS sW/yq xI8lDdIrey +7wZ+ nJo7Set1yt QJutX L064D1lmJB hblKH kSGU74239B bSVNA kRp3VzXery TubT8 aJrnl4VOi6 7/SPU 4m1srd9lTm OYBNK 63V1iglEw+ maab/ nUguTMqB7h E6jrU KfY6ckllhc DjF/T OLrr63lOHQ ZL2AU 22eicvc2rL N9GPv 5igYK6JDyb SzQGf xqELwyz1u2 N7RD+ gHW+ouQP+C ENGKn qjPrCDtOxt 27nvB swLkOfVKj6 XKrun T5yJVg5Yo6 j7R5O ClcpwR111z qwGNr k+gbtcMFOT VP38t Psvu/F90/u K6i3s RhLog232bF 0cxGF M4Qi63duES hum/U qZS+2Ufda9 nlAE3 At8Xa1VgoL byVC7 RrHjmqyKew zgqYz P7m0mAs+Nr Xfps3 sDetMYT/s0 2hK43 b1kLJOPy25 qXu8/ DOm151847H Rbg30 AZrmWkaFxi j0S1s toG3OabxZX YbtM7 sk7SArpR25 voMtW qnuBZipv97 fB/Bc YwkZ8PtRki 142Jq QXW78QB7Mq J1ab4 dfCSwAplvx HGcus kguutm5t2h FFv8p zEOT7+Bks7 Oadyy yrMqhjL4pz 6Vadh G3oGuB8uL/ QfoTz 3H3JpVfjwM c8YfS 20GrHD/svH cwR29 DWh/gcuzoU Kpb71 MWWlTZhkzv t+lvW ijT7xratj1 Xzvee 5UfsWGueOf TMdy8 VwocktC8ph i5Am7 +TOU1N0/a3 +qlnd /rNH0dIr/H +wDqT O01dZ+2fml M1JqT Dzkba9pDCZ T+/zf kRNL3h+jVk 4ExMY AW5guXGzXL EwX8B 3Pk7eI6chM 5GOsD qZHQ9Blggp NiCeb qMz5ncKKoC e2lAv oYM8a5Loj5 +Ltd1 F0iJVEwR8N csKPv /R4A+IDdms KeNoi 5sW38HqEKX 7uM2V oyxEAsX852 /Ov2C zl9E5m1xbm NTvp3 vfzqO/+m4/ Lfa/W U9io15rS6W +e2e6 0u1cwtn/NO Cekuz jdracKFfHw e2Awd z7B4KVGswp 0paJe BoHc2RmCxm lhysw i5VXjxd9pj uFyw7 d4w1D/jtjw UqOVf /uCst+XN3t vpJvd vgjF6V5R6D +43tN Zk1LWiAfw4 2O1kv 6xasuzzPe+ lP0rQ axD3t2MdMu 1uwTh wio42PrOf0 gvlb4 rwzyGJf46A i2AIA yrrRxgEbmy zbz9x vr7S7aylQ1 +ih5s DeNpHBPCiv Grjft nmJcd0ASiO HVvjp ejm6V/sX2n GSYtX 77hZeR7/Rp 2NPP5 2uip5FJ6nI 75u0c cioBAP6SZT Vv7mZ b7+V1fUZf0 EtRKB nfdvxg75wz l/D72 wK1JnKf+lZ rAHM/ 6xK7+zvu6j zpRnQ 42+YG768CQ x604M 8+L7S39Gnt hTGaM jFWPCONf+k rQMdZ fYyaYNy7xK Jorje+k wR8k0kCuxf 6JRvg 4wTt6Y1Xpy RLgHm Qr6ZqlQnNa 34Mf0 KJ2OjI8cJk 3EPad ryKVFW3hb8 dTBWz pFzYu7V9Ys Sy4qE R1pfit6OBA H/gkd jprTJvy9nw 7EL8U 6fZZ+3c+V2 B+Fef eyS5jRG2n/ PBplO 8yU6h86prO 5l7xC M8WJ7d7reH C6Iux SfiaO7rCZh Kgt8w N8B+Uoe8Cn Htymx wG9NIlYun0 Dania+e AtycIwGG9/ Q3UYm xUOJhMj6GU EsDQJ 8rvhW2nHok 8RHzc YP3gwVVkDD hz1DQ /l/VMHvNxw qt5P1 R2ad5Wkn/f 01W2/ bLYtMvZ+25 pqyc9 26uJGiGN8B Zr/7n qdbo2APwfi TrXeq MkP7skXdm/ EeqhG 6NgQ1YFOqm Dp7Zc rf9fj3kHcG Sc2H5 es7ufR29Y8 FHMPv eLGhP5j0Xq PPq+8 A+Ikwbii3C 2sZ/9 A3BtVfAzw1 90UXe ptxobcaZ/l /5p1K 2VrJR53zgK A/5M7 aEmjiiDZ4q fOxru bokHSCde3N cCv06 27ZdZpJlD8 a9tpK gKIp5idkVY dTsn0 myuekidBfi fpqda a/eNjN9nD6 ZVtn8 +VQ7n02fEJ UPptj b8ODOK7HFS f/XQP nP8I+v1V/N 9F0Tn sRjWddyzpV rRn8t ww4GGlqYmU t8gD1 tE7TCvceHS DWRep nLys1bDEQi WU3W6 uxG1nwe0vh bkGLN Y2ywoMR3ka aIb8G 3ogNam725V GLs/S XfMXSQfJt8 Dj4Cv pU42m1V833 1Pwe4 yR6Tg6w9Rz lC/jase Sc437xiK/i mS5yD /VruR4GCha tweQh 936IXsQjvN djvN2 pr83U7HgaY qTX6O whXr2kD8P7 Ef9Tb 6b2q/Mgzxb IOctv Zy52F4Zlry 625fh O4L+D6Hx9b Z01vn Vz9oOPFZVi h1mvv tD1up7Ea7R 6oyoO PUfU+1+ZVd T96fx EJOVzXt/Zy 9nLPX CTbxs9G9jM tgC/X eV2vxkC+i2 f72Po L3H5EK8mui mUERd wn7g8c6C71 hzwAv EA4WxkVtwp 6pTr3 OfzvE/dK0H 9rI7w rw6uflou+e pTDPS Ll04rNaHi7 GruVz cQb/XQFD/e 2Ug22 QF3lZy0wEQ VJCIG c8KRCgx9qi gwcNH NC/X9+L+mT 07tWz U1g9qZ8oj3 ROTUn 8v7zorLA6H sTHxc Z0aB/drm2b 1lGRr CRhqxaA58r dhq5J Qd3z/Pllvm BqWVB B5L1khj0+f zkCyp qTdSX7BSh/ kyfoK 3BnjcI0O+C cFsIZ sDgDTZwiyj eYBqd 39+J0giWUx X5fgy sdZvt8pcy/ iS/4u VLKPi7xtGo C7qQk JPDlxVTl+o KizJc RnP6QNEfCt ovs6l qE5/hzKsPT u1Nde Oz7P7DI0OI fXSc6 DBHKITvkDa yT5Il ApYJx/ty8Y Kw/l2 dQ3UKvkajA Y8YW5 +XGJyWVpHc Pipyp /nkD9f6iNV MslKO PYrltpo5Yi G86t4 ZW+tn4917s 3RBFU 4aTBnn1Y7d nFQe1 4yEjm8Blmk 0Ndrj kj1sDCgDrM qd4ef NHbW76I3g4 j721t vx2mL3sz8c HJvG3 jGT0FB2JdC +rzUf Jq0PMDuvDo UG5tK Z4QHszBN+3 hFtlt c/6s8+Usit 9wTB/ tr+l3hkdBK 1cbZD KJV4PUltI0 GMeo7 x0I72WdU7b mBnvL rkAZsouQ8B jrt8Z G/YXwlsE1w 0uqrX MuKUyOw8Oa 4jmjs llXLCZ0Jnr GNfUs 0Rj5G3QlBi 6pvpQ k2I/2tSfP5 X9qXZ jp4IsJ5nTr mAFRm L8UZtfqBEm IIdz+ aNYZuY24E6 NkAD/ 538/M6TcDn GlRH1 I3CY8gIT9r DvuYF tctHp1VoD3 DsYUd Ryi/H3Tu89 rkH7/ 7CgfCLqPxq Bvy0s T4kS8KtFqH K9qCN PNaQN4A5ig v4+mx NdToGdaSVC Wccx+ LwC9IGwIYG FNycv 3mSIx0vPxj NCT2v GqPDZ0tqqK A4Oi/ F2MV9zgZMO +grGl vi827cN3pq uKzvB W3u9a8ueKn G1OsR QslWxU29Kd 9deqD hf5iE0Nxya +cymh rmhweyCVKk T48oN PZgZul3w5F tJPTN RgnuBUipxO ZlczO DDtTP+gM/x nVK9l aRNT47mkoV i0tjb 8jDiImlXgc JtA4q itKDxWH7Cj mJkp+ K/B3N+fURI fDKDL wutS1dmE9i 4zGON tdwn+sXSmd 8+Hoq qxytq15poR assbz Jopfl+Uv3a PfEo+ MIm9q9uVnI Zz76r 6SV3mKhXHc RiISS Fbd52iTojc C4gVh cPUl1OXbHr Kiuul kAbc6XM2jM gr3oO BO1LAEm3vZ Pb42E WQJg8jpe5F H78nQ FSjYnUVoPx TGwSp AP6GAjtxv0 TCopw wiTDdCguoM P7HOi sotKm82Bcl WZLu/ D+JqNv/4f9 wHsz7 x1OXl17unz RzdHJ hUF6XYnFxL G9iag 0KMjEgMCBv YmoNC iAgPDwvRml sdGVy VU4KnFU2FH RlY29 kZSAvTGVuZ 3RoID I0Mj4+DQog IHN0c pRfuW1RfDt 1UcFq wzAMvQ/2Dz p27OD Ul+0QAqVjk EO3sW ia3FhSzvsm oziH/ E2pwKJ14n5 L0JP0 hWRIGzUk8d 0kG0B 8sdMVBqgtG cbO9a lT9oxCgyc1 N8Nag fY2IYjj3s7 yMzXq JyBHnE2zev Of5yC +V7zVtMQWE sT2ec NWHX/Jamfw CcQnG 1XFuf685Ox /xBYp XIGXQZhs52 U75T9 UiyBuTN/o/ Rk8gk jC94PdLEM7 pZEVN XhlIosoIH+ PKGYa ydybkCfBfa 0Piv8 VJTFgM15qQ TMpU/ 2lwLgyufvF ve6Z4 4Wmd00+R4e W8PJa 16sza6m+AL L6jvd lbmRzdHJlY W0NCm TkMQ8wrj3W MjIgM CBvYmoNCjw 8DQog MN1PpWXfF8 ZvbnR EZXNjcmlwd G9yDQ njKT5Bm443 TmFtZ U6SWYGTMYU rQXJp YWxVbmljb2 RlDQo eFI9Ge6Mes nQgOT U2Y4RqlJpj aWdod QW7JZBuNVM zY2Vu dCAtMjEyDQ ogIC9 GbGFncyAzM g0KIC BbWj8gnEDH b3ggW zAgLTIxMiA xMDAw HCvnQS5VDa AgL0l 7AKdvQ8CfZ 2xlID ByW2CpsEJb MA0KI YGvDk0vbUP pbGUy IDIwIDAgUg 0KPj4 XVhJzCO8hv g0KMj MgMCBvYmoN Cjw8D GmqCJ8LeCH lL0Zv ytKwP2YkpB lwZS9 JBBFSj989D HlwZT IvQmFzZUZv bnQvQ GHCAXWOV0V yaWFs HK4pP25fFD 9DSUR Bq1rOUV5zs C9JZG QomMy3bJ5F ICAvQ 8uAY2dxgXZ tSW5m xyH2HA4OCP dpc3R yeSAoQWRvY mUpL0 6bAASudC1q IChJZ CNprOf1kQr gL1N1 yOGxAR2hgu QgMD4 +UG1FZLYiO m9udE Nbt7LivUE5 b3IgM jIgMCBSDQo +Pg0K SS1pg4PjXM oyNCA hJI7pzg6KQ DwNCi McS9B5tOIs Rm9ud S3PiTR6oIJ lL1R5 sTRtU7Zjw8 VGb25 5Q1RCKACGP ytBcm lhbFVuaWNv ZGUvR T9qp2Kkoiv vSWRl bnRpdHktSA 0KICA vXVCuK2MsE GFudE ZvbnRzIFsy MyAwI FJdDQogIC9 Ub1Vu aWNvZGUgMj EgMCB SDQo+Pg0KZ W5kb2 JqDQoyIDAg b2JqD Tg5QH2NWSM vUHJv K4JorGXiP4 BERi9 BIBh3T4zyC WdlQ1 7SZyUvO6Ql bnQgP ZdaJ8CaBFE 2IDAg Bq7SMQIaXA 9GMSA xOSAwIFINC iAgIC AvRjIgMjQg MCBSP h7WYuCaI1z PYmpl B8GiEAegRu 4NCj4 +DQplbmRvY moNCj MgMCBvYmoN Cjw8D BeuOF2QjHS lL1Bh D3FfVPuvWD 9NZWR pYUJveCBbM CAwID EoLhY0SRWs DQogI R1DtWFwWAc gNSAw IFIgNyAwIF IgOSA wIFIgMTEgM CBSID EzIDAgUiBd DQogI B0Mh6FoyQA 1DQo+ Hm6DKT2xu8 JqDQo hHPFePN8pl g0KPD zIChLcG8Wq cnN0I GC8YGCbKm5 KICAv TGFzdCAyNi AwIFI TDzRoF9Pdm W50ID ENCj4+DQpl bmRvY ufTImP3EUH gb2Jq KWw7BX6YYA AvVGl 0bGUoUHJvZ 3Jlc3 UsFk81IZOn YnkgT WFyaXNhIEU gRGVz yS3czhKpLT 1EIGF 0IDExLzEyL zIwMT YoNCB8Ymnx UE0pD HzqLV7DBHD 0IFsg NSAwIFIgL1 hZWiA mDJK0QEYaw WxsIF 6CKzFiG0Dw cmVud CAyNSAwIFI NCj4+ DQplbmRvYm oNCjI 8PODkh7RiO Qo8PA 0KICAvVHlw ZS9DY XXcpY1aFJq gIC9Q YWdlcyAzID AgUg0 KICAvUGFnZ U1vZG AeOLOtE6O5 bGluZ WRTXwIuP77 1dGxp csDyWOX5EI AgUg0 GYELlT6Jyf kFjdG lvbiBbIDUg MCBSI A5AEXrehxX sbCBu uTrnMS32fT wgXQ0 DNz6CSzKrG G9iag 7UzIEwUs8L MCAyO B8RXKYtTCP wMDAw DYG4RMIkCl BmDQo wMDAwMDAwM DE3ID UsIUDyWR7K CjAwM ARfYdS6OEX gMDAw FGErsq5OJC AwMDA iVgn1PiSvS DAwMC BuDQowMDAw MDAwM Uv5MSBzEKH wIG4N CjAwMDAwMD I0NTM gMDAwMDAgb g0KMD AwMDAwMjU4 OSAwM DAwMCBuDQo wMDAw EME9ZxF3DW AwMDA yOE3XLzUxS DAwMD G8RZYnJOMt MDAgb y2HFCRaTHC wNjE1 OSAwMDAwMC BuDQo tGJYqFRM9Z jk1ID ZiPSDlGO8O CjAwM DAwMDkzNzI gMDAw HEVswf1EPE AwMDA wOTUxMCAwM DAwMC BuDQowMDAw MDA5O Zk1HLOmYTV wIG4N CjAwMDAwMT AxMTY gMDAwMDAgb g0KMD AwMDAxMTA4 MSAwM DAwMCBuDQo wMDAw DPEkFqz0SH AwMDA kEW0FAzFqH DAwMT U7DbSeAFDk MDAgb o8QLRJzZKK xMjQy NSAwMDAw BuDQo wMDAwMDEyN jI3ID RqWXKhWT6C CjAwM LFtGPV9OAH gMDAw BGRqog2FZC AwMDA fVct7JTAvP DAw BuDQowMDAw MDIzM DcwIDAwMDA wIG4N CjAwMDAwMj MyODY gMDAwMDAgb g0KMD AwMDAyMzQ5 OCAwM DAwBuDQo wMDAw MNFkCHL7LF AwMDA sNX2CWsVbY DAwMj U8DcdfTCRo MDAgb w6FMZGjXBY yNDEz MCAwMDAw BuDQp 0cmFpbGVyD Qo8PA 9HF6BbczXs MjgNC f6Wk122XKZ 3IDAg Qb9BA2ptJm 8gMSA jGRTMVa0XF Fs8YT hkZjFkMzE0 OTRlO TYxNjZlNWN kN2E1 QpC2AMDlXJ U+PGE 4ZGYxZDMxN Dk0ZT s4YMH2SDFu ZDdhN WZhOThlYTl lPl0g DQo+Pg0Kc3 RhcnR 4cmVmDQoyN DI3OQ 0IOZCQE6HH Cg== ID Date Data Source [id number] 05/01/2013 12:19:00 PM EDT [facility] HISTORY: Pain. LEFT WRIST: There i s no evidence for fractures, subluxation or adjacent soft tissue swelling. IMPRESSIO N: Unremarkable wrist. If there is continued clinical concern for scaphoid fracture, repeat examination in 10-14 days is recommended. Job: [id number] Name Value Range Interpretation Code Description Data Elsy rce(s) Supporting Document(s ) ID Date Data Source [id number] 03/09/2013 09:50:00 PM EDT [facility] BILATERAL ANKLES: COMPARISON: No prior for comparison. INDICATION: Pain. LEFT ANKLE: Multiple views are obtained. Th ere is no acute fracture or dislocation. There is degenerative change involving t he subtalar joint with a questionable old healed fracture of the calcaneus. The t alus appears intact. The ankle mortise is intact. IMPRESSION: Probable old fra cture of the calcaneus. Recommend clinical correlation. There is no evidence of ac inaja fracture or dislocation. RIGHT ANKLE: Multiple views are obtained. There is e vidence for an old fracture involving the distal tibia. There is degenerative lucy nge involving thetibiotalar joint. The subtalar joint does appear intact. Ther e is no evidence of acute fracture, however. IMPRESSION: Significant old findings c onsistent with a history of previous fracture of the distal tibia. There is marked de generative change involving thetibiotalar joint, however, no evidence of acute fra cture. Job: [id number] Name Value Range Interpretation Code Description Data Elsy rce(s) Supporting Document(s ) Procedure Social History Code Duration Value Status Description Data Source(s ) Daily Caffeine Consumes on completed Consumes on [facility] ( [facility] average 1 cup of average 1 cup of Ca rdiology) regular coffee regular coffee per day per day Recreational Drug Formerly addicted completed Formerly ad dicted [facility] ([facility] Use to Cocaine to Cocaine Cardiology) Smoking Patient is a completed Patient is a [facility] ([facility] current smoker, current smoker, Card iology) smokes every day smokes every day ETOH Use Occasionally completed Occasionally [facility] ([facility] consumed alcohol consumed alcohol [facility]diology) in the past in the past Smoking Current Cigarette completed Current Cigarette [facility] ([facility] Smoker 1/2 Pack Smoker 1/2 Pack Card iology) Daily Daily Work Status Unemployed completed Unemployed [facility]) Inmate Marital Status Children completed Children [facility]) 0 Marital Status Single completed Single [facility]) Vital Signs ID Date Data Source UNK Name Value Range Interpretation Code Description Data Source(s) Body mass index 27.1 kg/m2 27.1 kg/m2 [facility] ([facility] [place] (BMI) [Ratio] [facility]) Body weight 178.00 178.00 [lb_av] [facility] [place] Measured [lb_av] [facility]) Body height 68 [in_i] 68 [in_i] [facility]) 5'8" Heart rate 54 /min 54 /min [facility] ([facility]) Diastolic blood pressure 88 mm[Hg] 88 mm[Hg] [facility]) pt did not get morning meds Systolic blood pressure 178 mm[Hg] 178 mm[Hg] M [facility] ([facility]) pt did not get morning meds ID Date Data Source [id number] 04/24/2018 01:39:00 PM EDT [facility] Name Value Range Interpretation Code Description Data Source(s) HEIGHT 172.72 cm 172.72 cm [facility] WEIGHT RECORDED 80.056540 kg 80.911309 kg [facility] ID Date Data Source [id number] 02/14/2018 04:22:00 PM EDT [facility] Name Value Range Interpretation Code Description Data Source(s) HEIGHT 172.72 cm 172.72 cm [facility] WEIGHT RECORDED 80.664269 kg 80.461013 kg [facility] ID Date Data Source [id number] 09/05/2014 08:19:46 AM EST [facility] Name Value Range Interpretation Code Description Data Source(s) WEIGHT RECORDED 189 lb 189 lb [facility] Body height 69 in 69 in [facility]
[2020-07-20] MEDS ORDERED: CLOPIDOGREL BISULFATE 75 MG TABLET (FP) PO SCH (12:00)
[2020-07-20] MEDS ORDERED: MAGNESIUM SULFATE 16 OZ CRYSTALS TP ONE (12:00)
[2020-07-20 12:05] VITALS: BMI 27.6
[2020-07-20] MEDS ORDERED: hydrOXYzine PAMOATE 25 MG CAPSULE (FP) PO PRN (12:24)
[2020-07-20] MEDS: ASPIRIN 81 MG CHEWABLE TABLETS PO SCH (12:42)
[2020-07-20] MEDS: metFORMIN HCL 500 MG TABLET (FP) PO SCH ×2 (12:42→16:56)
[2020-07-20] MEDS: NICOTINE 21 MG/24 HOURS TOPICAL PATCH TD SCH (12:42)
[2020-07-20] MEDS: chlordiazePOXIDE HCL 25 MG CAPSULE PO SCH ×3 (12:43→22:23)
[2020-07-20 13:22] LABS: HEMATOCRIT 40.3 % (35.4-49); HEMOGLOBIN 13.3 GM/dL (11.7-16.9); MCHC 33.1 g/dl (32.0-35.9); MEAN CELL VOLUME 93.6 fl (80-96); MEAN PLT VOLUME 9.1 fl (7.5-11.1); PLATELET COUNT 257 K/MM3 (134-434); RDW 13.9 % (11.9-15.9); WHITE BLOOD COUNT 5.3 K/mm3 (4.0-10.0)
[2020-07-20 13:45] LABS: ALBUMIN 3.4 g/dl (3.4-5.0); CALCIUM 9.8 mg/dL (8.5-10.1); CREATININE 1.3 mg/dL (0.55-1.3); POTASSIUM 4.2 mmol/L (3.5-5.1)
[2020-07-20 13:47] LABS: BILIRUBIN,TOTAL 0.4 mg/dL (0.2-1); TOT PROT 7.1 g/dl (6.4-8.2)
[2020-07-20] MEDS ORDERED: hydrOXYzine PAMOATE 25 MG CAPSULE (FP) PO SCH (14:00)
--- NOTE | 2020-07-20 14:09 | EKG ---
Test Reason : Blood Pressure : / mmHG Vent. Rate : 059 BPM Atrial Rate : 059 BPM P-R Int : 162 ms QRS Dur : 078 ms QT Int : 470 ms P-R-T Axes : -01 -22 123 degrees QTc Int : 465 ms SINUS BRADYCARDIA T WAVE ABNORMALITY, CONSIDER LATERAL ISCHEMIA PROLONGED QT ABNORMAL ECG WHEN COMPARED WITH ECG OF 19-SEP-2016 16:38, NO SIGNIFICANT CHANGE WAS FOUND Confirmed by MARCE LARSON MD ([id number]) on 07/20/2020 2:09:12 PM Referred By: Confirmed By:MARCE LARSON MD
[2020-07-20] MEDS ORDERED: CLOPIDOGREL BISULFATE 75 MG TABLET (FP) PO ONE (14:54)
[2020-07-20] MEDS ORDERED: INSULIN SLIDING SCALE (NOVOLOG) 1 VIAL SQ ONE (16:54)
[2020-07-20] MEDS: INSULIN SLIDING SCALE (NOVOLOG) 1 VIAL SQ SCH ×2 (16:59→22:28)
[2020-07-20] MEDS ORDERED: PATIENT'S OWN MEDICATION (NON-FORMULARY) (Insulin Glargine,Hum.Rec.Anlog 25 UNITS) SQ SCH (22:00)
[2020-07-20] MEDS: MELATONIN 5 MG TABLETS PO SCH (22:23)
[2020-07-20] MEDS: THIAMINE HCL 100 MG TABLET (FP) PO SCH (22:24)
[2020-07-20] MEDS: INSULIN (LEVEMIR) 100 UNITS/ML UNITS SQ SCH (22:27)
[2020-07-21] MEDS: chlordiazePOXIDE HCL 25 MG CAPSULE PO SCH ×4 (06:50→23:52)
[2020-07-21] MEDS ORDERED: CLOPIDOGREL BISULFATE 75 MG TABLET (FP) PO SCH (10:00)
[2020-07-21] MEDS ORDERED: PRENATAL VITAMINS W/ FOLIC ACID TABLET (FP) PO SCH (10:00)
[2020-07-21] MEDS: NICOTINE 21 MG/24 HOURS TOPICAL PATCH TD SCH (11:04)
[2020-07-21] MEDS: ASPIRIN 81 MG CHEWABLE TABLETS PO SCH (11:05)
[2020-07-21] MEDS ORDERED: INSULIN (NOVOLOG) ASPART 100 UNITS/ML 10ML VIAL SQ ONE (12:12)
[2020-07-21] MEDS: INSULIN SLIDING SCALE (NOVOLOG) 1 VIAL SQ SCH ×4 (12:16→22:48)
--- NOTE | 2020-07-21 12:16 | PN ---
S CIWA - CIWA Score Nausea/Vomitin-No Nausea/No Vomiting Muscle Tremors: 3 Anxiety: 3 Agitation: 3 Paroxysmal Sweats: 3 Orientation: 0-Oriented Tacttile Disturbances: 0-None Auditory Disturbances: 0-None Visual Disturbances: 0-None Headache: 0-None Present CIWA-Ar Total Score: 12 [facility] Progress Note (SOAP) Subjective: sweats shakes irritable agitation interrupted sleep Objective: 07/21/20 12:15 Vital Signs Temperature 95.9 F L 07/21/20 05:33 Pulse Rate 56 L 07/21/20 05:33 Respiratory Rate 20 07/21/20 05:33 Blood Pressure 138/70 07/21/20 05:33 O2 Sat by Pulse Oximetry (%) 96 07/21/20 05:33 Laboratory Tests 07/20/20 07/20/20 07/20/20 11:29 11:40 11:40 WBC 5.3 RBC 4.30 Hgb 13.3 Hct 40.3 MCV 93.6 MCH 31.0 MCHC 33.1 RDW 13.9 Plt Count 257 MPV 9.1 Sodium 133 L Potassium 4.2 Chloride 102 Carbon Dioxide 24 Anion Gap 6 L BUN 28.0 H Creatinine 1.3 Est GFR (CKD-EPI)AfAm 66.83 Est GFR (CKD-EPI)NonAf 57.66 POC Glucometer 430 Random Glucose 444 H* Calcium 9.8 Total Bilirubin 0.4 AST 29 ALT 56 Alkaline Phosphatase 122 H Total Protein 7.1 Albumin 3.4 Syphilis Serology COVID-19 ([facility]) 07/20/20 07/20/20 07/20/20 11:40 13:47 16:48 WBC RBC Hgb Hct MCV MCH MCHC RDW Plt Count MPV Sodium Potassium Chloride Carbon Dioxide Anion Gap BUN Creatinine Est GFR (CKD-EPI)AfAm Est GFR (CKD-EPI)NonAf POC Glucometer 307 Random Glucose Calcium Total Bilirubin AST ALT Alkaline Phosphatase Total Protein Albumin Syphilis Serology Non-reactive COVID-19 ([facility]) Not detected 07/20/20 07/21/20 21:41 12:05 WBC RBC Hgb Hct MCV MCH MCHC RDW Plt Count MPV Sodium Potassium Chloride Carbon Dioxide Anion Gap BUN Creatinine Est GFR (CKD-EPI)AfAm Est GFR (CKD-EPI)NonAf POC Glucometer 223 473 Random Glucose Calcium Total Bilirubin AST ALT Alkaline Phosphatase Total Protein Albumin Syphilis Serology COVID-19 ([facility]) labs noted aaox3 ambulating no acute distress Assessment: 07/21/20 12:16 withdrawals Plan: continue detox increase fluids
[2020-07-21] MEDS: metFORMIN HCL 500 MG TABLET (FP) PO SCH ×2 (17:33→18:41)
[2020-07-21] MEDS: INSULIN (LEVEMIR) 100 UNITS/ML UNITS SQ SCH (22:48)
[2020-07-21] MEDS: THIAMINE HCL 100 MG TABLET (FP) PO SCH (22:48)
[2020-07-21] MEDS: MELATONIN 5 MG TABLETS PO SCH (22:48)
[2020-07-22] MEDS ORDERED: chlordiazePOXIDE HCL 25 MG CAPSULE PO SCH (05:00)
[2020-07-22 06:57] VITALS: BP 142/71; PULSE 59; TEMP 97.7
[2020-07-22] MEDS ORDERED: INSULIN SLIDING SCALE (NOVOLOG) 1 VIAL SQ ONE (07:45)
[2020-07-22] MEDS: INSULIN SLIDING SCALE (NOVOLOG) 1 VIAL SQ SCH (07:58)
[2020-07-22] MEDS: metFORMIN HCL 500 MG TABLET (FP) PO SCH (07:58)
--- NOTE | 2020-07-22 10:03 | PN ---
S Progress Note Note: pt states Im leaving and have an appointment. Pt was made aware of his reason for detox and risk of relapse, seizure, DT, OD and or loss however, pt chose to sign out AMA.
--- NOTE | 2020-07-22 10:04 | DS ---
[facility] Detox Discharge Summary Admission Date: 07/20/20 - History Present History: Alcohol Dependence, Cocaine Dependence - Physical Exam Results Vital Signs: Vital Signs Temperature 97.7 F 07/22/20 05:30 Pulse Rate 59 L 07/22/20 05:30 Respiratory Rate 18 07/22/20 05:30 Blood Pressure 142/71 07/22/20 05:30 O2 Sat by Pulse Oximetry (%) 95 07/22/20 05:30 - Treatment Hospital Course: Rehab Referral Accepted - Medication Discharge Medications: Ambulatory Orders Aspirin [ASA -] 81 mg PO DAILY #30 tab.chew 09/20/16 Diltiazem Cd [Cardizem Cd -] 120 mg PO DAILY #30 cap.cd.24h 09/22/16 Insulin Glargine,Hum.rec.anlog [Lantus Solostar PEN -] 30 units SQ HS #1 ins 09/22/16 Clopidogrel Bisulfate [Plavix -] 75 mg PO DAILY #14 tablet 12/13/18 Nitroglycerin Sublingual [Nitrostat -] 0.4 mg SL Q5M PRN #7 tab 12/13/18 metFORMIN HCL [Glucophage -] 500 mg PO BID #30 tablet 12/13/18 - Diagnosis (1) Alcohol dependence with uncomplicated withdrawal Current Visit: Yes Status: Chronic (2) Homeless Current Visit: Yes Status: Acute (3) Nicotine dependence Current Visit: Yes Status: Acute Qualifiers: Nicotine product type: cigarettes Substance use status: uncomplicated Qualified Code(s): F17.210 - Nicotine dependence, cigarettes, uncomplicated (4) Cocaine dependence Current Visit: Yes Status: Chronic Qualifiers: Substance use status: uncomplicated Qualified Code(s): F14.20 - Cocaine dependence, uncomplicated (5) Hypertension Current Visit: Yes Status: Chronic Qualifiers: Hypertension type: essential hypertension Qualified Code(s): I10 - Essential (primary) hypertension (6) Insulin dependent diabetes mellitus Current Visit: Yes Status: Chronic (7) Drug-induced mood disorder Current Visit: No Status: Acute (8) Unstable angina Current Visit: No Status: Acute (9) CAD (coronary artery disease) Current Visit: No Status: Chronic Qualifiers: Coronary Disease-Associated Artery/Lesion type: unspecified vessel or lesion type [place] vs. transplanted heart: [place] heart Associated angina: with unstable angina Qualified Code(s): I25.110 - Atherosclerotic heart disease of [place] coronary artery with unstable angina pectoris (10) Hepatitis C Current Visit: No Status: Chronic (11) Hypercholesteremia Current Visit: No Status: Chronic - AMA Did Patient Leave Against Medical Advice: Yes
[2020-07-23] MEDS ORDERED: chlordiazePOXIDE HCL 10 MG CAPSULE PO PRN
[2020-07-23] MEDS ORDERED: chlordiazePOXIDE HCL 10 MG CAPSULE PO SCH (05:00)
[2020-07-24] MEDS ORDERED: chlordiazePOXIDE HCL 10 MG CAPSULE PO SCH (05:00)
[2020-07-25] MEDS ORDERED: chlordiazePOXIDE HCL 10 MG CAPSULE PO ONE (05:00)
== END 2020-07-22 10:08 | disposition left against medical advice (07) | DRG 770 ==
LOC: YASAS 10:00 → Y6N 11:29
PROVIDERS: ADMIT Allergy & Immunology; ATTEND Allergy & Immunology
PROC: HZ2ZZZZ Detoxification Services for Substance Abuse Treatment (ICD-10-PCS; principal; 2020-07-20)
DX: F10.230 Alcohol dependence with withdrawal, uncomplicated (principal); F14.20 Cocaine dependence, uncomplicated; F12.10 Cannabis abuse, uncomplicated; F17.210 Nicotine dependence, cigarettes, uncomplicated; F19.24 Other psychoactive substance dependence with psychoactive substance-induced mood disorder; F32.9 Major depressive disorder, single episode, unspecified; I25.110 Atherosclerotic heart disease of native coronary artery with unstable angina pectoris; I10 Essential (primary) hypertension; I25.2 Old myocardial infarction; E78.00 Pure hypercholesterolemia, unspecified; E11.9 Type 2 diabetes mellitus without complications; Z79.4 Long term (current) use of insulin; B18.2 Chronic viral hepatitis C; Z59.0 Homelessness
CPT/HCPCS: 36415; 71046-TC-FY; 80053; 82962; 85027; 86780; 93005; 93010; U0003

== ENCOUNTER 2020-08-31 12:04 | Inpatient (IN) | payer OTHER ==
[2020-08-31 12:37] VITALS: BMI 25.4
[2020-08-31] MEDS ORDERED: BISMUTH SUBSALICYLATE 524 MG/30 ML UD PO PRN (12:57)
[2020-08-31] MEDS ORDERED: ONDANSETRON *ODT* 4 MG TABLET SL PRN (12:57)
[2020-08-31] MEDS ORDERED: METHOCARBAMOL 500 MG TABLET PO PRN (12:57)
[2020-08-31] MEDS ORDERED: MAGNESIUM CITRATE 300 ML BOTTLE PO PRN (12:57)
[2020-08-31] MEDS ORDERED: ACETAMINOPHEN 325 MG TABLET (FP) PO PRN ×2 (12:57)
[2020-08-31] MEDS ORDERED: MAG HYDROX/AL HYDROX/SIMETH 30 ML UNIT-DOSE CUP PO PRN (12:57)
[2020-08-31] MEDS ORDERED: MENTHOL/PHENOL 1 EACH UD MM PRN (12:57)
[2020-08-31] MEDS ORDERED: NICOTINE POLACRILEX 2 MG GUM BUC PRN (12:57)
[2020-08-31] MEDS ORDERED: IBUPROFEN 400 MG TABLET (FP) PO PRN (12:57)
[2020-08-31] MEDS ORDERED: MAGNESIUM HYDROX 2400MG/30ML ORAL SUSPENSION 30 ML CUP PO PRN (12:57)
[2020-08-31] MEDS ORDERED: chlordiazePOXIDE HCL 25 MG CAPSULE PO PRN (12:57)
[2020-08-31] MEDS ORDERED: NITROGLYCERIN SUBLINGUAL 1/150 0.4 MG TAB SL PRN (12:59)
[2020-08-31] MEDS: hydrOXYzine PAMOATE 25 MG CAPSULE (FP) PO SCH ×3 (14:04→22:14)
[2020-08-31] MEDS: NICOTINE 7 MG/24 HOURS TOPICAL PATCH TD SCH (14:04)
[2020-08-31] MEDS: PRENATAL VITAMINS W/ FOLIC ACID TABLET (FP) PO SCH (14:04)
[2020-08-31] MEDS: chlordiazePOXIDE HCL 25 MG CAPSULE PO SCH ×3 (14:05→22:14)
[2020-08-31] MEDS: metFORMIN HCL 500 MG TABLET (FP) PO SCH (17:23)
[2020-08-31] MEDS: INSULIN SLIDING SCALE (NOVOLOG) 1 VIAL SQ SCH (17:25)
[2020-08-31 17:26] LABS: POTASSIUM 4.1 mmol/L (3.5-5.1)
[2020-08-31 17:28] LABS: HEMATOCRIT 38.8 % (35.4-49); HEMOGLOBIN 12.9 GM/dL (11.7-16.9); MCH 31.8 pg (25.7-33.7); MCHC 33.3 g/dl (32.0-35.9); MEAN CELL VOLUME 95.6 fl (80-96); MEAN PLT VOLUME 9.4 fl (7.5-11.1); PLATELET COUNT 222 K/MM3 (134-434); RBC 4.06 M/mm3 (4.00-5.60); RDW 14.2 % (11.9-15.9); WHITE BLOOD COUNT 3.4 K/mm3 (4.0-10.0)
[2020-08-31 17:29] LABS: CALCIUM 9.5 mg/dL (8.5-10.1)
[2020-08-31 17:30] LABS: ALBUMIN 3.2 g/dl (3.4-5.0); BLOOD UREA NITROGEN 20.2 mg/dL (7-18)
[2020-08-31 17:33] LABS: CREATININE 1.3 mg/dL (0.55-1.3)
[2020-08-31 17:34] LABS: BILIRUBIN,TOTAL 0.8 mg/dL (0.2-1); TOT PROT 6.6 g/dl (6.4-8.2)
[2020-08-31] MEDS: INSULIN (LEVEMIR) 100 UNITS/ML UNITS SQ SCH (21:29)
[2020-08-31] MEDS: THIAMINE HCL 100 MG TABLET (FP) PO SCH (22:14)
[2020-08-31] MEDS: MELATONIN 5 MG TABLETS PO SCH (22:14)
[2020-09-01] MEDS: hydrOXYzine PAMOATE 25 MG CAPSULE (FP) PO SCH ×5 (05:35→22:29)
[2020-09-01] MEDS: chlordiazePOXIDE HCL 25 MG CAPSULE PO SCH ×4 (05:35→22:29)
[2020-09-01] MEDS: INSULIN SLIDING SCALE (NOVOLOG) 1 VIAL SQ SCH ×4 (06:51→23:05)
[2020-09-01] MEDS: metFORMIN HCL 500 MG TABLET (FP) PO SCH ×2 (06:59→17:22)
[2020-09-01] MEDS: CLOPIDOGREL BISULFATE 75 MG TABLET (FP) PO SCH (10:25)
[2020-09-01] MEDS: ASPIRIN 81 MG CHEWABLE TABLETS PO SCH (10:25)
[2020-09-01] MEDS: PRENATAL VITAMINS W/ FOLIC ACID TABLET (FP) PO SCH (10:26)
[2020-09-01] MEDS: NICOTINE 7 MG/24 HOURS TOPICAL PATCH TD SCH (10:26)
[2020-09-01] MEDS: THIAMINE HCL 100 MG TABLET (FP) PO SCH (22:29)
[2020-09-01] MEDS: MELATONIN 5 MG TABLETS PO SCH (22:29)
[2020-09-01] MEDS: INSULIN (LEVEMIR) 100 UNITS/ML UNITS SQ SCH (22:59)
[2020-09-02] MEDS: hydrOXYzine PAMOATE 25 MG CAPSULE (FP) PO SCH ×5 (05:42→22:26)
[2020-09-02] MEDS: chlordiazePOXIDE HCL 25 MG CAPSULE PO SCH ×4 (05:42→22:26)
[2020-09-02] MEDS: metFORMIN HCL 500 MG TABLET (FP) PO SCH ×2 (08:01→16:53)
[2020-09-02] MEDS: INSULIN SLIDING SCALE (NOVOLOG) 1 VIAL SQ SCH ×3 (08:01→22:25)
[2020-09-02] MEDS: PRENATAL VITAMINS W/ FOLIC ACID TABLET (FP) PO SCH (10:23)
[2020-09-02] MEDS: ASPIRIN 81 MG CHEWABLE TABLETS PO SCH (10:23)
[2020-09-02] MEDS: CLOPIDOGREL BISULFATE 75 MG TABLET (FP) PO SCH (10:23)
[2020-09-02] MEDS: NICOTINE 7 MG/24 HOURS TOPICAL PATCH TD SCH (10:25)
[2020-09-02] MEDS: MELATONIN 5 MG TABLETS PO SCH (22:24)
[2020-09-02] MEDS: INSULIN (LEVEMIR) 100 UNITS/ML UNITS SQ SCH (22:24)
[2020-09-02] MEDS: THIAMINE HCL 100 MG TABLET (FP) PO SCH (22:27)
[2020-09-03] MEDS ORDERED: chlordiazePOXIDE HCL 10 MG CAPSULE PO PRN
[2020-09-03] MEDS: hydrOXYzine PAMOATE 25 MG CAPSULE (FP) PO SCH ×5 (05:55→23:10)
[2020-09-03] MEDS: chlordiazePOXIDE HCL 10 MG CAPSULE PO SCH ×4 (05:55→23:11)
[2020-09-03] MEDS: metFORMIN HCL 500 MG TABLET (FP) PO SCH ×2 (06:00→18:37)
[2020-09-03] MEDS ORDERED: INSULIN SLIDING SCALE (NOVOLOG) 1 VIAL SQ ONE (07:52)
[2020-09-03] MEDS: INSULIN SLIDING SCALE (NOVOLOG) 1 VIAL SQ SCH ×3 (07:58→21:58)
[2020-09-03] MEDS: CLOPIDOGREL BISULFATE 75 MG TABLET (FP) PO SCH (10:11)
[2020-09-03] MEDS: ASPIRIN 81 MG CHEWABLE TABLETS PO SCH (10:11)
[2020-09-03] MEDS: PRENATAL VITAMINS W/ FOLIC ACID TABLET (FP) PO SCH (10:12)
[2020-09-03] MEDS: NICOTINE 7 MG/24 HOURS TOPICAL PATCH TD SCH (10:13)
[2020-09-03] MEDS: INSULIN (LEVEMIR) 100 UNITS/ML UNITS SQ SCH (21:58)
[2020-09-03] MEDS: MELATONIN 5 MG TABLETS PO SCH (23:10)
[2020-09-03] MEDS: THIAMINE HCL 100 MG TABLET (FP) PO SCH (23:10)
[2020-09-04] MEDS: chlordiazePOXIDE HCL 10 MG CAPSULE PO SCH ×2 (06:37→17:45)
[2020-09-04] MEDS: hydrOXYzine PAMOATE 25 MG CAPSULE (FP) PO SCH ×5 (06:37→23:33)
[2020-09-04] MEDS: INSULIN SLIDING SCALE (NOVOLOG) 1 VIAL SQ SCH ×3 (07:37→23:32)
[2020-09-04] MEDS: metFORMIN HCL 500 MG TABLET (FP) PO SCH ×2 (07:37→17:15)
[2020-09-04] MEDS: CLOPIDOGREL BISULFATE 75 MG TABLET (FP) PO SCH (11:05)
[2020-09-04] MEDS: ASPIRIN 81 MG CHEWABLE TABLETS PO SCH (11:05)
[2020-09-04] MEDS: NICOTINE 7 MG/24 HOURS TOPICAL PATCH TD SCH (11:06)
[2020-09-04] MEDS: PRENATAL VITAMINS W/ FOLIC ACID TABLET (FP) PO SCH (11:06)
[2020-09-04] MEDS: MELATONIN 5 MG TABLETS PO SCH (23:31)
[2020-09-04] MEDS: INSULIN (LEVEMIR) 100 UNITS/ML UNITS SQ SCH (23:32)
[2020-09-04] MEDS: THIAMINE HCL 100 MG TABLET (FP) PO SCH (23:33)
[2020-09-05] MEDS ORDERED: chlordiazePOXIDE HCL 10 MG CAPSULE PO ONE (05:00)
[2020-09-05 06:25] VITALS: BP 142/67; PULSE 62; TEMP 97.2
[2020-09-05] MEDS: metFORMIN HCL 500 MG TABLET (FP) PO SCH (07:11)
[2020-09-05] MEDS: hydrOXYzine PAMOATE 25 MG CAPSULE (FP) PO SCH (07:11)
[2020-09-05] MEDS: INSULIN SLIDING SCALE (NOVOLOG) 1 VIAL SQ SCH (07:13)
== END 2020-09-05 09:13 | disposition home or self-care (01) | DRG 774 ==
LOC: YASAS 12:04 → Y3N 13:12
PROVIDERS: ADMIT Allergy & Immunology; ATTEND Allergy & Immunology
PROC: HZ2ZZZZ Detoxification Services for Substance Abuse Treatment (ICD-10-PCS; principal; 2020-08-31)
DX: F10.230 Alcohol dependence with withdrawal, uncomplicated (principal); F14.20 Cocaine dependence, uncomplicated; F12.10 Cannabis abuse, uncomplicated; F17.210 Nicotine dependence, cigarettes, uncomplicated; E78.00 Pure hypercholesterolemia, unspecified; E11.9 Type 2 diabetes mellitus without complications; Z79.84 Long term (current) use of oral hypoglycemic drugs; I25.10 Atherosclerotic heart disease of native coronary artery without angina pectoris; I10 Essential (primary) hypertension; B18.2 Chronic viral hepatitis C; Z59.0 Homelessness
CPT/HCPCS: 36415; 80053; 82962; 83036; 85027; 86780; C9803; U0003

== ENCOUNTER 2020-12-14 09:12 | Inpatient (IN) | payer OTHER ==
[2020-12-14 09:42] VITALS: BMI 23.2
[2020-12-14] MEDS ORDERED: INSULIN (NOVOLOG) ASPART 100 UNITS/ML 10ML VIAL ONE ×2 (10:21→17:35)
[2020-12-14] MEDS ORDERED: NICOTINE POLACRILEX 2 MG GUM BUC PRN (10:25)
[2020-12-14] MEDS ORDERED: MAGNESIUM HYDROX 2400MG/30ML ORAL SUSPENSION 30 ML CUP PO PRN (10:25)
[2020-12-14] MEDS ORDERED: METHOCARBAMOL 500 MG TABLET PO PRN (10:25)
[2020-12-14] MEDS ORDERED: IBUPROFEN 400 MG TABLET (FP) PO PRN (10:25)
[2020-12-14] MEDS ORDERED: MENTHOL/PHENOL 1 EACH UD MM PRN (10:25)
[2020-12-14] MEDS ORDERED: MAG HYDROX/AL HYDROX/SIMETH 30 ML UNIT-DOSE CUP PO PRN (10:25)
[2020-12-14] MEDS ORDERED: BISMUTH SUBSALICYLATE 524 MG/30 ML UD PO PRN (10:25)
[2020-12-14] MEDS ORDERED: ACETAMINOPHEN 325 MG TABLET (FP) PO PRN ×2 (10:25)
[2020-12-14] MEDS ORDERED: ONDANSETRON *ODT* 4 MG TABLET SL PRN (10:25)
[2020-12-14] MEDS ORDERED: MAGNESIUM CITRATE 300 ML BOTTLE PO PRN (10:25)
[2020-12-14] MEDS ORDERED: INSULIN REGULAR HUMAN 100 UNITS/ML *VIAL SQ ONE (10:45)
[2020-12-14] MEDS: PRENATAL VITAMINS W/ FOLIC ACID TABLET (FP) PO SCH (12:33)
[2020-12-14] MEDS: chlordiazePOXIDE HCL 25 MG CAPSULE PO SCH ×3 (12:33→22:01)
[2020-12-14] MEDS: hydrOXYzine PAMOATE 25 MG CAPSULE (FP) PO SCH ×3 (13:21→21:57)
[2020-12-14 16:31] LABS: HEMATOCRIT 40.6 % (35.4-49); HEMOGLOBIN 13.4 GM/dL (11.7-16.9); MCHC 33.1 g/dl (32.0-35.9); MEAN CELL VOLUME 90.7 fl (80-96); MEAN PLT VOLUME 9.1 fl (7.5-11.1); PLATELET COUNT 290 K/MM3 (134-434); RBC 4.48 M/mm3 (4.00-5.60); RDW 15.4 % (11.9-15.9); WHITE BLOOD COUNT 5.4 K/mm3 (4.0-10.0)
[2020-12-14 16:32] LABS: POTASSIUM 4.1 mmol/L (3.5-5.1)
[2020-12-14 16:41] LABS: ALBUMIN 3.5 g/dl (3.4-5.0); BLOOD UREA NITROGEN 24.6 mg/dL (7-18); CALCIUM 10.1 mg/dL (8.5-10.1)
[2020-12-14 16:44] LABS: CREATININE 1.4 mg/dL (0.55-1.3)
[2020-12-14 16:46] LABS: BILIRUBIN,TOTAL 0.4 mg/dL (0.2-1); TOT PROT 7.3 g/dl (6.4-8.2)
[2020-12-14] MEDS ORDERED: NITROGLYCERIN SUBLINGUAL 1/150 0.4 MG TAB SL PRN (17:02)
[2020-12-14] MEDS ORDERED: INSULIN (NOVOLOG) ASPART 100 UNITS/ML 10ML VIAL SQ ONE (17:14)
[2020-12-14] MEDS: chlordiazePOXIDE HCL 25 MG CAPSULE PO PRN ×2 (17:36→21:59)
[2020-12-14] MEDS: metFORMIN HCL 500 MG TABLET (FP) PO SCH (17:36)
[2020-12-14] MEDS: INSULIN (LEVEMIR) 100 UNITS/ML UNITS SQ SCH (21:56)
[2020-12-14] MEDS: THIAMINE HCL 100 MG TABLET (FP) PO SCH (21:57)
[2020-12-14] MEDS: MELATONIN 5 MG TABLETS PO SCH (21:58)
[2020-12-14] MEDS ORDERED: SUVOREXANT 10 MG TABLET PO PRN (22:00)
[2020-12-15] MEDS: chlordiazePOXIDE HCL 25 MG CAPSULE PO SCH ×4 (06:06→22:38)
[2020-12-15] MEDS: hydrOXYzine PAMOATE 25 MG CAPSULE (FP) PO SCH ×5 (06:06→21:55)
[2020-12-15] MEDS: metFORMIN HCL 500 MG TABLET (FP) PO SCH ×2 (06:12→16:21)
[2020-12-15] MEDS: PRENATAL VITAMINS W/ FOLIC ACID TABLET (FP) PO SCH (11:17)
[2020-12-15] MEDS: ASPIRIN 81 MG CHEWABLE TABLETS PO SCH (11:17)
[2020-12-15] MEDS: CLOPIDOGREL BISULFATE 75 MG TABLET (FP) PO SCH (11:17)
[2020-12-15] MEDS ORDERED: FLU VACCINE (FLULAVAL) PF 60 MCG/0.5 ML SYRINGE 2020-2021 IM ONE (12:00)
[2020-12-15] MEDS ORDERED: INSULIN (NOVOLOG) ASPART 100 UNITS/ML 10ML VIAL ONE (16:19)
[2020-12-15] MEDS: INSULIN (NOVOLOG) ASPART 100 UNITS/ML 10ML VIAL SQ SCH ×2 (16:21→21:47)
[2020-12-15] MEDS: THIAMINE HCL 100 MG TABLET (FP) PO SCH (21:46)
[2020-12-15] MEDS: MELATONIN 5 MG TABLETS PO SCH (21:47)
[2020-12-15] MEDS: INSULIN (LEVEMIR) 100 UNITS/ML UNITS SQ SCH (21:47)
[2020-12-16] MEDS: chlordiazePOXIDE HCL 25 MG CAPSULE PO SCH ×3 (05:55→18:24)
[2020-12-16] MEDS: hydrOXYzine PAMOATE 25 MG CAPSULE (FP) PO SCH ×4 (05:55→18:25)
[2020-12-16] MEDS: metFORMIN HCL 500 MG TABLET (FP) PO SCH ×2 (06:31→18:24)
[2020-12-16] MEDS ORDERED: INSULIN (NOVOLOG) ASPART 100 UNITS/ML 10ML VIAL ONE ×2 (06:34→11:37)
[2020-12-16] MEDS: INSULIN (NOVOLOG) ASPART 100 UNITS/ML 10ML VIAL SQ SCH ×3 (06:36→18:24)
[2020-12-16] MEDS: PRENATAL VITAMINS W/ FOLIC ACID TABLET (FP) PO SCH (10:40)
[2020-12-16] MEDS: CLOPIDOGREL BISULFATE 75 MG TABLET (FP) PO SCH (10:40)
[2020-12-16] MEDS: ASPIRIN 81 MG CHEWABLE TABLETS PO SCH (10:41)
[2020-12-16 13:43] VITALS: BP 139/69; PULSE 68; TEMP 98.7
[2020-12-17] MEDS ORDERED: chlordiazePOXIDE HCL 10 MG CAPSULE PO PRN
[2020-12-17] MEDS ORDERED: chlordiazePOXIDE HCL 10 MG CAPSULE PO SCH (05:00)
[2020-12-18] MEDS ORDERED: chlordiazePOXIDE HCL 10 MG CAPSULE PO SCH (05:00)
[2020-12-19] MEDS ORDERED: chlordiazePOXIDE HCL 10 MG CAPSULE PO ONE (05:00)
== END 2020-12-16 17:35 | disposition left against medical advice (07) | DRG 770 ==
LOC: YASAS 09:12 → Y6N 11:44
PROVIDERS: ADMIT Allergy & Immunology; ATTEND Allergy & Immunology
PROC: HZ2ZZZZ Detoxification Services for Substance Abuse Treatment (ICD-10-PCS; principal; 2020-12-14)
DX: F10.230 Alcohol dependence with withdrawal, uncomplicated (principal); F14.20 Cocaine dependence, uncomplicated; F12.10 Cannabis abuse, uncomplicated; F17.210 Nicotine dependence, cigarettes, uncomplicated; F19.280 Other psychoactive substance dependence with psychoactive substance-induced anxiety disorder; F19.282 Other psychoactive substance dependence with psychoactive substance-induced sleep disorder; E78.00 Pure hypercholesterolemia, unspecified; I25.110 Atherosclerotic heart disease of native coronary artery with unstable angina pectoris; I10 Essential (primary) hypertension; I25.2 Old myocardial infarction; E11.9 Type 2 diabetes mellitus without complications; Z79.4 Long term (current) use of insulin; B18.2 Chronic viral hepatitis C; R01.1 Cardiac murmur, unspecified; Z87.81 Personal history of (healed) traumatic fracture; Z56.0 Unemployment, unspecified; Z59.0 Homelessness
CPT/HCPCS: 36415; 80053; 82962; 85027; 86780; C9803; U0003

== ENCOUNTER 2021-01-07 11:02 | Inpatient (IN) | payer OTHER ==
[2021-01-07 12:05] VITALS: BMI 23.6
[2021-01-07] MEDS ORDERED: MAGNESIUM CITRATE 300 ML BOTTLE PO PRN (12:33)
[2021-01-07] MEDS ORDERED: ACETAMINOPHEN 325 MG TABLET (FP) PO PRN ×2 (12:33)
[2021-01-07] MEDS ORDERED: MENTHOL/PHENOL 1 EACH UD MM PRN (12:33)
[2021-01-07] MEDS ORDERED: chlordiazePOXIDE HCL 25 MG CAPSULE PO PRN (12:33)
[2021-01-07] MEDS ORDERED: MAGNESIUM HYDROX 2400MG/30ML ORAL SUSPENSION 30 ML CUP PO PRN (12:33)
[2021-01-07] MEDS ORDERED: IBUPROFEN 400 MG TABLET (FP) PO PRN (12:33)
[2021-01-07] MEDS ORDERED: MAG HYDROX/AL HYDROX/SIMETH 30 ML UNIT-DOSE CUP PO PRN (12:33)
[2021-01-07] MEDS ORDERED: BISMUTH SUBSALICYLATE 524 MG/30 ML UD PO PRN (12:33)
[2021-01-07] MEDS ORDERED: ONDANSETRON *ODT* 4 MG TABLET SL PRN (12:33)
[2021-01-07] MEDS ORDERED: NICOTINE POLACRILEX 2 MG GUM BUC PRN (12:33)
[2021-01-07] MEDS ORDERED: METHOCARBAMOL 500 MG TABLET PO PRN (12:33)
[2021-01-07] MEDS ORDERED: INSULIN (NOVOLOG) ASPART 100 UNITS/ML 10ML VIAL SQ ONE (12:52)
[2021-01-07] MEDS ORDERED: INSULIN (NOVOLOG) ASPART 100 UNITS/ML 10ML VIAL ONE (13:00)
[2021-01-07] MEDS ORDERED: hydrOXYzine PAMOATE 25 MG CAPSULE (FP) PO SCH (14:00)
[2021-01-07 14:03] LABS: HEMATOCRIT 39.4 % (35.4-49); HEMOGLOBIN 13.1 GM/dL (11.7-16.9); MCH 30.1 pg (25.7-33.7); MCHC 33.3 g/dl (32.0-35.9); MEAN CELL VOLUME 90.4 fl (80-96); MEAN PLT VOLUME 8.8 fl (7.5-11.1); PLATELET COUNT 280 K/MM3 (134-434); RBC 4.36 M/mm3 (4.00-5.60); RDW 15.8 % (11.9-15.9); WHITE BLOOD COUNT 4.5 K/mm3 (4.0-10.0)
[2021-01-07] MEDS: CLOPIDOGREL BISULFATE 75 MG TABLET (FP) PO SCH (14:09)
[2021-01-07] MEDS: PRENATAL VITAMINS W/ FOLIC ACID TABLET (FP) PO SCH (14:09)
[2021-01-07] MEDS: ASPIRIN 81 MG CHEWABLE TABLETS PO SCH (14:09)
[2021-01-07 14:22] LABS: POTASSIUM 4.1 mmol/L (3.5-5.1)
[2021-01-07 14:23] LABS: CALCIUM 10.3 mg/dL (8.5-10.1)
[2021-01-07 14:24] LABS: ALBUMIN 3.4 g/dl (3.4-5.0)
[2021-01-07 14:27] LABS: CREATININE 1.3 mg/dL (0.55-1.3)
[2021-01-07 14:28] LABS: BILIRUBIN,TOTAL 0.5 mg/dL (0.2-1); TOT PROT 7.1 g/dl (6.4-8.2)
[2021-01-07] MEDS ORDERED: hydrOXYzine PAMOATE 25 MG CAPSULE (FP) PO PRN (15:12)
[2021-01-07] MEDS: chlordiazePOXIDE HCL 25 MG CAPSULE PO SCH ×2 (18:19→22:51)
[2021-01-07] MEDS: INSULIN SLIDING SCALE (NOVOLOG) 1 VIAL SQ SCH ×2 (18:20→22:59)
[2021-01-07] MEDS ORDERED: MELATONIN 5 MG TABLETS PO SCH (22:00)
[2021-01-07] MEDS ORDERED: THIAMINE HCL 100 MG TABLET (FP) PO SCH (22:00)
[2021-01-07] MEDS ORDERED: INSULIN (LEVEMIR) 100 UNITS/ML UNITS SQ SCH (22:00)
[2021-01-07] MEDS: metFORMIN HCL 500 MG TABLET (FP) PO SCH (22:51)
[2021-01-07] MEDS ORDERED: INSULIN SLIDING SCALE (NOVOLOG) 1 VIAL SQ ONE (22:56)
[2021-01-08] MEDS: chlordiazePOXIDE HCL 25 MG CAPSULE PO SCH ×2 (05:51→10:36)
[2021-01-08] MEDS: metFORMIN HCL 500 MG TABLET (FP) PO SCH (06:59)
[2021-01-08] MEDS: INSULIN SLIDING SCALE (NOVOLOG) 1 VIAL SQ SCH ×2 (07:34→11:56)
[2021-01-08] MEDS ORDERED: INSULIN SLIDING SCALE (NOVOLOG) 1 VIAL SQ ONE ×2 (07:47→11:58)
[2021-01-08 09:13] VITALS: BP 153/76; PULSE 66; TEMP 97.3
[2021-01-08] MEDS: CLOPIDOGREL BISULFATE 75 MG TABLET (FP) PO SCH (10:36)
[2021-01-08] MEDS: ASPIRIN 81 MG CHEWABLE TABLETS PO SCH (10:36)
[2021-01-08] MEDS: PRENATAL VITAMINS W/ FOLIC ACID TABLET (FP) PO SCH (10:36)
[2021-01-09] MEDS ORDERED: chlordiazePOXIDE HCL 25 MG CAPSULE PO SCH (05:00)
[2021-01-10] MEDS ORDERED: chlordiazePOXIDE HCL 10 MG CAPSULE PO PRN
[2021-01-10] MEDS ORDERED: chlordiazePOXIDE HCL 10 MG CAPSULE PO SCH (05:00)
[2021-01-11] MEDS ORDERED: chlordiazePOXIDE HCL 10 MG CAPSULE PO SCH (05:00)
[2021-01-12] MEDS ORDERED: chlordiazePOXIDE HCL 10 MG CAPSULE PO ONE (05:00)
== END 2021-01-08 12:57 | disposition left against medical advice (07) | DRG 770 ==
LOC: YASAS 11:02 → Y3N 12:05
PROVIDERS: ADMIT Allergy & Immunology; ATTEND Allergy & Immunology
PROC: HZ2ZZZZ Detoxification Services for Substance Abuse Treatment (ICD-10-PCS; principal; 2021-01-07)
DX: F10.230 Alcohol dependence with withdrawal, uncomplicated (principal); F14.20 Cocaine dependence, uncomplicated; F12.10 Cannabis abuse, uncomplicated; F17.210 Nicotine dependence, cigarettes, uncomplicated; F19.282 Other psychoactive substance dependence with psychoactive substance-induced sleep disorder; F19.280 Other psychoactive substance dependence with psychoactive substance-induced anxiety disorder; F19.24 Other psychoactive substance dependence with psychoactive substance-induced mood disorder; E11.9 Type 2 diabetes mellitus without complications; Z79.4 Long term (current) use of insulin; I25.10 Atherosclerotic heart disease of native coronary artery without angina pectoris; I10 Essential (primary) hypertension; I25.2 Old myocardial infarction; E78.00 Pure hypercholesterolemia, unspecified; B18.2 Chronic viral hepatitis C; R63.4 Abnormal weight loss; Z68.23 Body mass index [BMI] 23.0-23.9, adult; Z86.79 Personal history of other diseases of the circulatory system
CPT/HCPCS: 36415; 80053; 82962; 85027; 86780; C9803; U0003